=== PATIENT | female | born 1955 | race Caucasian/White ===

== ENCOUNTER → 2017-04-13 | Outpatient (CLI) | payer OTHER ==
--- NOTE | 2017-04-13 14:01 | CT ---
EXAMINATION TYPE: CT ChestAbdPelvis w con DATE OF EXAM: 04/13/2017 COMPARISON: NONE HISTORY: Staging for rectal CA CT DLP: 1826 mGycm CONTRAST: CT scan of the chest, abdomen and pelvis is performed with Oral Contrast and with IV Contrast, patien t injected with 100 mL of Omnipaque 300. CT Chest: LUNGS: The lungs are clear and free of infiltrate or atelectasis. No pulmonary nodule or mass is det ected. No pleural effusion or CT evidence of interstitial lung disease. MEDIASTINUM: The thyroid lobes. BE somewhat prominent. No distinct nodule identified. Thoracic aorta is of normal caliber. The heart is not enlarged. No evidence for mediastinal mass or adenopathy. HILAR STRUCTURES: No evidence for mass. No hilar adenopathy is appreciated. OTHER: No significant abnormality. CONTRAST CT ABDOMEN AND PELVIS FINDINGS: LIVER/GB: Large gallstone with peripheral calcification. No space occupying hepatic lesion. Biliary t ree is of normal caliber. PANCREAS: No inflammation. No distinct mass. SPLEEN: No splenic enlargement. No lesion seen. ADRENALS: No nodule. No thickening. KIDNEYS/BLADDER: No hydronephrosis. No nephrolithiasis. No disctinct renal mass. BOWEL: Normal appendix. Rectosigmoid soft tissue prominence suggested may reflect the site of rectal cancer. No evidence for obstruction. Colonic diverticulosis. GENITAL ORGANS: No gross abnormality. LYMPH NODES: No greater than 1cm abdominal or pelvic lymph nodes are appreciated. AORTA: No significant abnormality. OSSEOUS STRUCTURES: No significant abnormality is seen. OTHER: No significant additional abnormality is seen. IMPRESSION: 1. Rectosigmoid soft tissue prominence suggested may reflect the site of rectal cancer. 2. No evidence for metastatic disease. 3. Cholelithiasis. 4 thyroidomegaly
--- NOTE | 2017-04-13 15:31 | NM ---
EXAMINATION TYPE: NM bone scan whole body DATE OF EXAM: 04/13/2017 COMPARISON: CT chest abdomen and pelvis earlier today. HISTORY: Newly diagnosed rectal cancer. Delayed whole-body scanning was performed following the injection of 19.2 mCi Tc 99m MDP. Images acq uired 3 hours post injection. Images are obtained of the whole body as well as the abdomen and pelvis in multiple projections. FINDINGS: There is no scintigraphic evidence of suspicious radiotracer uptake throughout osseous structures to suggest metastatic disease or other abnormality. Bladder uptake is noted. Slight underlying scoliosis is redemonstrated. IMPRESSION: No scintigraphic evidence of metastatic disease to the bone.
== END | disposition home or self-care (01) ==
LOC: RADCTMAIN 11:32
PROVIDERS: ATTEND Internal Medicine Gastroenterology
DX: C20 Malignant neoplasm of rectum (principal); K80.20 Calculus of gallbladder without cholecystitis without obstruction; E01.0 Iodine-deficiency related diffuse (endemic) goiter
CPT/HCPCS: 71260; 74177; 78306; A9503; Q9967

== ENCOUNTER 2017-10-11 18:35 | Inpatient (IN) | payer OTHER ==
[2017-10-11] MEDS ORDERED: SODIUM CHLORIDE 0.9% 2,000 ML IV STA (19:32)
[2017-10-11] MEDS ORDERED: ONDANSETRON 4 MG/2 ML VIAL IVP STA (19:32)
[2017-10-11] MEDS ORDERED: PIPERACILLIN-TAZOBACTAM 3.375 GM in DEXTROSE/WATER 1 50ML.BAG IVPB STA (19:33)
[2017-10-11 19:49] LABS: HCT 41.4 % (34.0-46.0); HGB 14.5 gm/dL (11.4-16.0); MCH 29.8 pg (25.0-35.0); MCV 85.2 fL (80.0-100.0); Mean Platelet Volume 8.1; RBC 4.86 m/uL (3.80-5.40); RDW 14.4 % (11.5-15.5)
[2017-10-11 20:00] LABS: Albumin 4.3 g/dL (3.5-5.0); Calcium 9.6 mg/dL (8.4-10.2); Total Bilirubin 1.6 mg/dL (0.2-1.3); Total Protein 7.7 g/dL (6.3-8.2)
[2017-10-11 20:07] LABS: Appearance,Urine Cloudy (Clear); Bilirubin,Urine Negative (Negative); Blood,Urine Negative (Negative); Cellular Casts,Urine 4 /lpf (0); Color,Urine Yellow; Glucose,Urine (UA) Negative (Negative); Hyaline Casts,Urine 103 /lpf (0-2); Ketones,Urine Trace (Negative); Leukocyte Esterase,Urine Negative (Negative); Mucus,Urine Moderate /hpf; Nitrite,Urine Negative (Negative); PH, Urine 5.5 (5.0-8.0); Protein,Urine 1+ (Negative); RBC,Urine 1 /hpf (0-5); Specific Gravity,Urine 1.015 (1.001-1.035); Squamous Epithelial Cell,Urine 1 /hpf (0-4); Urobilinogen,Urine <2.0 mg/dL (<2.0); WBC,Urine 2 /hpf (0-5)
[2017-10-11 20:25] LABS: Band Neutrophils % 11 %; Metamyelocytes % 3 %; Myelocytes % 3 %; Neutrophils % (M) 34 %; Nucleated Red Blood Cells 4 /100 WBC (0-0); Plasma Cells % 1 %; Poikilocytosis (M) Present; Polychromasia Present; Total Cells Counted 200
[2017-10-11 20:28] LABS: Basophils # (M) 0.02 k/uL (0-0.2); Metamyelocytes # (M) 0.05 k/uL (0); Myelocytes # (M) 0.05 k/uL (0); Plasma Cells # (M) 0.02 k/uL (0)
[2017-10-11 20:29] LABS: Platelet Count 86 k/uL (150-450)
[2017-10-11 20:37] LABS: Lymphocytes # (M) 0.62 k/uL (1.0-4.8); Monocytes # (M) 0.18 k/uL (0-1.0); WBC 1.6 k/uL (3.8-10.6)
--- NOTE | 2017-10-11 20:39 | XR ---
EXAMINATION TYPE: XR chest 2V DATE OF EXAM: 10/11/2017 COMPARISON: NONE HISTORY: Chest pain TECHNIQUE: Frontal and lateral views of the chest are obtained. FINDINGS: There is no focal air space opacity, pleural effusion, or pneumothorax seen. The cardiac silhouette size is within normal limits. Right-sided Port-A-Cath is present, right jugular approach, distal tip of the catheter coursing towards the superior vena cava, patient is rotated. There are ov erlying cardiac leads. The osseous structures are intact. IMPRESSION: No acute cardiopulmonary process.
[2017-10-11] MEDS ORDERED: SODIUM CHLORIDE 0.9% 2,000 ML IV ONE ×2 (21:30→23:14)
[2017-10-11] MEDS ORDERED: LOPERAMIDE 2 MG CAP PO STA (21:31)
--- NOTE | 2017-10-11 21:37 | ED ---
Nausea/Vomiting/Diarrhea HPI - General Chief complaint: Nausea/Vomiting/Diarrhea Stated complaint: Dehydrated, weakness Time Seen by Provider: 10/11/17 19:25 Source: patient Mode of arrival: ambulatory Limitations: no limitations - History of Present Illness Initial comments: X-ray years old female with history of rectal cancer comes in with a fever chills tachycardia and generalized weakness nausea vomiting and diarrhea. She denies any headaches no neck stiffness no chest pain no shortness of breath she is complaining about sore throat she has been coughing no abdominal pain as such no symptoms of TIA or CVA. She is being treated by Dr. Craig - Related Data Home Medications Medication Instructions Recorded Confirmed Calcium Carbonate [Calcium] 600 mg PO DAILY 10/11/17 10/11/17 Famotidine [Pepcid AC] 10 mg PO DAILY PRN 10/11/17 10/11/17 Loperamide HCl [Imodium A-D] 2 mg PO DAILY PRN 10/11/17 10/11/17 Multivitamins, Thera [Multivitamin 1 tab PO DAILY 10/11/17 10/11/17 (formulary)] Ondansetron HCl [Zofran] 8 mg PO BID PRN 10/11/17 10/11/17 Pegfilgrastim [Neulasta] 6 mg SQ Q14D 10/11/17 10/11/17 Allergies Allergy/AdvReac Type Severity Reaction Status Date / Time No Known Allergies Allergy Verified 10/11/17 19:01 Review of Systems ROS Statement: Those systems with pertinent positive or pertinent negative responses have been documented in the HPI. ROS Other: All systems not noted in ROS Statement are negative. Past Medical History Past Medical History: Cancer Additional Past Medical History / Comment(s): rectal ca History of Any Multi-Drug Resistant Organisms: None Reported Past Surgical History: Bowel Resection, Section Additional Past Surgical History / Comment(s): Iliostomy Past Psychological History: No Psychological Hx Reported Smoking Status: Never smoker Past Alcohol Use History: None Reported Past Drug Use History: None Reported General Exam - General Exam Comments Initial Comments: General: The patient is awake and looks pale, tired Skin: Skin is warm and dry and no rashes or lesions are noted. Eye: Pupils are equal, round and reactive to light, extra-ocular movements are intact; there is normal conjunctiva bilaterally. Ears, nose, mouth and throat: Mucous membranes are very dry Neck: The neck is supple, there is no tenderness or JVD. Cardiovascular: There is a regular rate and rhythm. No murmur, rub or gallop is appreciated. She is tachycardic Respiratory: To auscultation bilateral, no wheezing no rhonchi no distress respiratory alvarez noticed Gastrointestinal: Soft, non-distended, non-tender abdomen without masses or organomegaly noted. There is no rebound or guarding present. Bowel sounds are unremarkable. Back: There is no tenderness to palpation in the midline. There is no obvious deformity. Musculoskeletal: Normal ROM, no tenderness, There is no pedal edema. There is no calf tenderness or swelling. No cords were appreciated. Neurological: CN II-XII intact, Cranial nerves III through XII are intact. There are no obvious motor or sensory deficits. Coordination appears grossly intact. Speech is normal. Psychiatric: Cooperative, appropriate mood & affect, normal judgment. Limitations: no limitations Course Vital Signs 10/11/17 10/11/17 10/11/17 18:37 19:54 21:00 Temperature 102.4 F H 101.1 F H 101.5 F H Pulse Rate 146 H 118 H 116 H Respiratory 18 18 16 Rate Blood Pressure 108/66 126/68 105/62 O2 Sat by Pulse 97 100 100 Oximetry Medical Decision Making - Lab Data Result diagrams: 10/11/17 19:35 10/11/17 19:35 Lab Results 10/11/17 10/11/17 10/11/17 Range/Units 19:30 19:35 19:35 WBC 1.6 L* (3.8-10.6) k/uL RBC 4.86 (3.80-5.40) m/uL Hgb 14.5 (11.4-16.0) gm/dL Hct 41.4 (34.0-46.0) % MCV 85.2 (80.0-100.0) fL MCH 29.8 (25.0-35.0) pg MCHC 35.0 (31.0-37.0) g/dL RDW 14.4 (11.5-15.5) % Plt Count 86 L (150-450) k/uL Neutrophils % (Manual) 34 % Band Neutrophils % 11 % Lymphocytes % (Manual) 39 % Monocytes % (Manual) 11 % Basophils % (Manual) 1 % Metamyelocytes % 3 % Myelocytes % 3 % Neutrophils # (Manual) 0.70 L (1.3-7.7) k/uL Lymphocytes # (Manual) 0.62 L (1.0-4.8) k/uL Monocytes # (Manual) 0.18 (0-1.0) k/uL Basophils # (Manual) 0.02 (0-0.2) k/uL Metamyelocytes # (Man) 0.05 H (0) k/uL Myelocytes # (Manual) 0.05 H (0) k/uL Plasma Cell # (Manual) 0.02 H (0) k/uL Nucleated RBCs 4 H (0-0) /100 WBC Manual Slide Review Performed Plasma Cells % 1 % Polychromasia Present Poikilocytosis (manual Present Sodium 133 L (137-145) mmol/L Potassium 4.0 (3.5-5.1) mmol/L Chloride 92 L (98-107) mmol/L Carbon Dioxide 21 L (22-30) mmol/L Anion Gap 20 mmol/L BUN 16 (7-17) mg/dL Creatinine 1.10 H (0.52-1.04) mg/dL Est GFR (CKD-EPI)AfAm 63 (>60 ml/min/1.73 sqM) Est GFR (CKD-EPI)NonAf 55 (>60 ml/min/1.73 sqM) Glucose 126 H (74-99) mg/dL Plasma Lactic Acid Keshawn (0.7-2.0) mmol/L Calcium 9.6 (8.4-10.2) mg/dL Total Bilirubin 1.6 H (0.2-1.3) mg/dL AST 55 H (14-36) U/L ALT 50 (9-52) U/L Alkaline Phosphatase 146 H (38-126) U/L Total Protein 7.7 (6.3-8.2) g/dL Albumin 4.3 (3.5-5.0) g/dL Urine Color Urine Appearance (Clear) Urine pH (5.0-8.0) Ur Specific [place] (1.001-1.035) Urine Protein (Negative) Urine Glucose (UA) (Negative) Urine Ketones (Negative) Urine Blood (Negative) Urine Nitrite (Negative) Urine Bilirubin (Negative) Urine Urobilinogen (<2.0) mg/dL Ur Leukocyte Esterase (Negative) Urine RBC (0-5) /hpf Urine WBC (0-5) /hpf Ur Squamous Epith Cells (0-4) /hpf Cellular Casts (0) /lpf Hyaline Casts (0-2) /lpf Urine Mucus (None) /hpf Influenza Type A RNA (Not Detectd) Influenza Type B (PCR) (Not Detectd) Group A Strep Rapid Negative (Negative) 10/11/17 10/11/17 10/11/17 Range/Units 19:35 19:35 19:51 WBC (3.8-10.6) k/uL RBC (3.80-5.40) m/uL Hgb (11.4-16.0) gm/dL Hct (34.0-46.0) % MCV (80.0-100.0) fL MCH (25.0-35.0) pg MCHC (31.0-37.0) g/dL RDW (11.5-15.5) % Plt Count (150-450) k/uL Neutrophils % (Manual) % Band Neutrophils % % Lymphocytes % (Manual) % Monocytes % (Manual) % Basophils % (Manual) % Metamyelocytes % % Myelocytes % % Neutrophils # (Manual) (1.3-7.7) k/uL Lymphocytes # (Manual) (1.0-4.8) k/uL Monocytes # (Manual) (0-1.0) k/uL Basophils # (Manual) (0-0.2) k/uL Metamyelocytes # (Man) (0) k/uL Myelocytes # (Manual) (0) k/uL Plasma Cell # (Manual) (0) k/uL Nucleated RBCs (0-0) /100 WBC Manual Slide Review Plasma Cells % % Polychromasia Poikilocytosis (manual Sodium (137-145) mmol/L Potassium (3.5-5.1) mmol/L Chloride (98-107) mmol/L Carbon Dioxide (22-30) mmol/L Anion Gap mmol/L BUN (7-17) mg/dL Creatinine (0.52-1.04) mg/dL Est GFR (CKD-EPI)AfAm (>60 ml/min/1.73 sqM) Est GFR (CKD-EPI)NonAf (>60 ml/min/1.73 sqM) Glucose (74-99) mg/dL Plasma Lactic Acid Keshawn 6.2 H* (0.7-2.0) mmol/L Calcium (8.4-10.2) mg/dL Total Bilirubin (0.2-1.3) mg/dL AST (14-36) U/L ALT (9-52) U/L Alkaline Phosphatase (38-126) U/L Total Protein (6.3-8.2) g/dL Albumin (3.5-5.0) g/dL Urine Color Yellow Urine Appearance Cloudy H (Clear) Urine pH 5.5 (5.0-8.0) Ur Specific [place] 1.015 (1.001-1.035) Urine Protein 1+ H (Negative) Urine Glucose (UA) Negative (Negative) Urine Ketones Trace H (Negative) Urine Blood Negative (Negative) Urine Nitrite Negative (Negative) Urine Bilirubin Negative (Negative) Urine Urobilinogen <2.0 (<2.0) mg/dL Ur Leukocyte Esterase Negative (Negative) Urine RBC 1 (0-5) /hpf Urine WBC 2 (0-5) /hpf Ur Squamous Epith Cells 1 (0-4) /hpf Cellular Casts 4 (0) /lpf Hyaline Casts 103 H (0-2) /lpf Urine Mucus Moderate H (None) /hpf Influenza Type A RNA Not Detected (Not Detectd) Influenza Type B (PCR) Not Detected (Not Detectd) Group A Strep Rapid (Negative) Critical Care Time Total Critical Care Time: 45 Critical Care Time: She is a 62 years old female diagnosed with a rectal cancer had down nausea vomiting and diarrhea came in very dehydrated and tachycardic heart rate was 145 dehydrated pale and tired labs were reviewed, white count is 1.6 platelets are 86 lactate is 6.2 urinalysis is negative flu a flu B and and strep is negative she was complaining about sore throat and she is immune compromised and she had a high fever on arrival, following the septic protocol now all the cultures were done and she was given a dose of his toes or cells seen Zosyn 2 L of fluid were given a CT chest x-ray were reviewed and didn't see any chest problems like heart failure she was given another 2 L she was admitted to [facility] floor since her tachycardia has improved and I will admit her under Dr. Fernando service Dr. rCaig be a consult Disposition Clinical Impression: Fever, Immunocompromised, Neutropenic Disposition: ADMITTED IP TO THIS HOSP Referrals: Katie Maurice MD [Primary Care Provider] - 1-2 days
[2017-10-11] MEDS ORDERED: NALOXONE 0.4 MG/ML 1 ML VIAL IV PRN (21:57)
[2017-10-11] MEDS ORDERED: ACETAMINOPHEN TAB 325 MG TAB PO PRN (21:57)
[2017-10-11] MEDS ORDERED: MORPHINE SULFATE 4 MG/ML SYRINGE IV PRN (21:57)
[2017-10-11] MEDS ORDERED: ONDANSETRON 4 MG/2 ML VIAL IVP PRN (21:57)
[2017-10-11 22:00] VITALS: RESP 18
[2017-10-12 00:47] VITALS: BMI 26.8
[2017-10-12] MEDS: SODIUM CHLORIDE 0.9% 1,000 ML IV SCH ×6 (02:05→19:55)
[2017-10-12] MEDS ORDERED: LOPERAMIDE 2 MG CAP PO PRN (07:08)
[2017-10-12] MEDS: MAG HYDROX/AL HYDROX/SIMETH 30 ML, diphenhydrAMINE ELIXIR 75 MG, LIDOCAINE VISCOUS 30 ML PO SCH ×12 (07:49→19:55)
[2017-10-12] MEDS: MULTIVITAMINS, THERA 1 EACH TAB PO SCH (07:50)
[2017-10-12] MEDS: CALCIUM CARBONATE 500 MG CHEWABLE PO SCH (07:50)
[2017-10-12] MEDS: LOPERAMIDE 2 MG CAP PO PRN ×3 (10:07→20:33)
[2017-10-12] MEDS ORDERED: MORPHINE ORAL SOLN 10 MG/5 ML CUP PO PRN (11:22)
[2017-10-12] MEDS: PIPERACILLIN-TAZOBACTAM 3.375 GM in DEXTROSE/WATER 1 50ML.BAG IVPB SCH ×2 (12:09→19:55)
[2017-10-12] MEDS ORDERED: DEXTROSE 5% IN WATER 250 ML with AMIODARONE 300 MG IV ONE (14:34)
[2017-10-12] MEDS: DILTIAZEM 50 MG in SODIUM CHLORIDE 0.9% 40 ML IV SCH ×3 (14:44→20:33)
--- NOTE | 2017-10-12 16:34 | P.CONS ---
History of Present Illness - Reason for Consult Consult date: 10/12/17 - History of Present Illness Mrs. Niecy Guajardo is a 62 yr old white female, in otherwise good health. The patient had a colonoscopy on 04/05/17, prompted by passage of small amounts of blood intermittently in the stool, over the last 2 months. Her prior colonoscopy was about 4 years ago. On examination, a nonobstructive mass was noted about 10 cm from the anal verge. Biopsies were done. Case was discussed with GI, and the patient referred here for further evaluation and recommendations. Pathology was positive for rectal adenocarcinoma. She had CT CAP and bone scan,which were negative for distant mets. EUS revealed a T3 N1 tumor. She started chemoRT with Xeloda on 04/30/17. She completed chemoRT on . She had segmental resection on 08/02/17 at [facility] with Dr Ortiz, with temporary ostomy placement. She had a residual 0.7 cm adenoca, clear margins and 0/13 nodes involved She had a PORT placed by Dr Montemayor, and started FOLFOX on 09/03/17. She is s/p 3 cycles, with the most recent given from 10/01- 10/03/17. Neulasta was added with cycle 3, and given on 10/04/17. The patient was seen in the office earlier this week, where she appeared to be doing well. White count was 2.8 with ANC greater than 1000. On 10/09/17, she states that she developed fairly acute onset of diarrhea in the afternoon. This became progressively more severe. Yesterday the patient developed nausea with some vomiting as well as fever with chills. She had increasing weakness. She therefore came into the emergency room where her temperature was found to be 101+. White blood count was actually lower than in the office, at 1.6 with ANC of 700. She was therefore admitted for further management, and consult placed. Review of Systems Constitutional: Reports fever, Reports poor appetite, Reports weakness Eyes: denies blurred vision, denies pain Ears: deny: decreased hearing, ear discharge, earache, tinnitus Ears, nose, mouth and throat: Denies headache, Denies sore throat Cardiovascular: Reports palpitations, Reports rapid heart beat Respiratory: Denies cough Gastrointestinal: Reports diarrhea, Reports nausea, Reports vomiting Genitourinary: Denies dysuria, Denies hematuria Menstruation: Reports postmenopausal Musculoskeletal: Reports muscle weakness Integumentary: Denies pruritus, Denies rash Neurological: Reports weakness, Denies numbness Psychiatric: Denies anxiety, Denies depression Endocrine: Reports fatigue, Denies weight change Hematologic/Lymphatic: Reports as per HPI Past Medical History Past Medical History: Cancer Additional Past Medical History / Comment(s): rectal ca History of Any Multi-Drug Resistant Organisms: None Reported Past Surgical History: Bowel Resection, Section Additional Past Surgical History / Comment(s): Ileostomy Past Anesthesia/Blood Transfusion Reactions: No Reported Reaction Past Psychological History: No Psychological Hx Reported Smoking Status: Never smoker Past Alcohol Use History: None Reported Past Drug Use History: None Reported - Past Family History Father Family Medical History: Diabetes Mellitus, Hypertension Medications and Allergies Home Medications Medication Instructions Recorded Confirmed Type Calcium Carbonate [Calcium] 600 mg PO DAILY 10/11/17 10/11/17 History Famotidine [Pepcid AC] 10 mg PO DAILY PRN 10/11/17 10/11/17 History Loperamide HCl [Imodium A-D] 2 mg PO DAILY PRN 10/11/17 10/11/17 History Multivitamins, Thera [Multivitamin 1 tab PO DAILY 10/11/17 10/11/17 History (formulary)] Ondansetron HCl [Zofran] 8 mg PO BID PRN 10/11/17 10/11/17 History Pegfilgrastim [Neulasta] 6 mg SQ Q14D 10/11/17 10/11/17 History Allergies Allergy/AdvReac Type Severity Reaction Status Date / Time No Known Allergies Allergy Verified 10/11/17 19:01 Physical Exam Vitals: Vital Signs Temp Pulse Pulse Resp BP BP Pulse Ox 10/12/17 14:27 93 L 10/12/17 11:41 108 H 18 10/12/17 11:34 98.6 F 108 H 18 108/62 95 10/12/17 08:00 99.2 F 100 18 103/57 95 10/12/17 04:00 97.8 F 102 H 18 95/55 95 10/12/17 00:06 100.2 F H 110 H 18 93/54 94 L 10/11/17 23:20 112 H 18 109/52 99 10/11/17 23:03 100.7 F H 124 H 18 106/61 97 10/11/17 21:58 99.1 F 125 H 18 105/65 97 10/11/17 21:00 101.5 F H 116 H 16 105/62 100 10/11/17 19:54 101.1 F H 118 H 18 126/68 100 10/11/17 18:37 102.4 F H 146 H 18 108/66 97 Intake and Output 10/12/17 10/12/17 10/12/17 06:59 14:59 22:59 Intake Total 4600 480 Balance 4600 480 Intake: Intake, IV Titration 4600 Amount Sodium Chloride 0.9% 1, 600 000 ml @ 100 mls/hr IV . Q10H TIAGO Rx#:[id number] Sodium Chloride 0.9% 2, 1000 000 ml @ 999 mls/hr IV . Q2H1M ONE Rx#:[id number] Sodium Chloride 0.9% 2, 2000 000 ml @ 999 mls/hr IV . Q2H1M ONE Rx#:[id number] Sodium Chloride 0.9% 2, 1000 000 ml @ 999 mls/hr IV . Q2H1M STA Rx#:[id number] Oral 480 Other: Voiding Method Toilet Toilet Weight 74.7 kg - Constitutional General appearance: no acute distress - EENT Eyes: EOMI, PERRLA ENT: hearing grossly normal, normal oropharynx - Neck Neck: no lymphadenopathy Thyroid: bilateral: normal size - Respiratory Respiratory: bilateral: CTA - Cardiovascular Tachycardia Rhythm: regular Heart sounds: normal: S1, S2 - Gastrointestinal Left lower quadrant ostomy, with watery yellowish green stool General gastrointestinal: normal bowel sounds, soft - Integumentary Integumentary: normal - Neurologic Neurologic: CNII-XII intact - Musculoskeletal Musculoskeletal: generalized weakness, strength equal bilaterally - Psychiatric Psychiatric: A&O x's 3, appropriate affect Results CBC & Chem 7: 10/11/17 19:35 10/11/17 19:35 Labs: Abnormal Lab Results - Last 24 Hours (Table) 10/11/17 10/11/17 10/11/17 Range/Units 19:35 19:35 19:35 WBC 1.6 L* (3.8-10.6) k/uL Plt Count 86 L (150-450) k/uL Neutrophils # (Manual) 0.70 L (1.3-7.7) k/uL Lymphocytes # (Manual) 0.62 L (1.0-4.8) k/uL Metamyelocytes # (Man) 0.05 H (0) k/uL Myelocytes # (Manual) 0.05 H (0) k/uL Plasma Cell # (Manual) 0.02 H (0) k/uL Nucleated RBCs 4 H (0-0) /100 WBC Sodium 133 L (137-145) mmol/L Chloride 92 L (98-107) mmol/L Carbon Dioxide 21 L (22-30) mmol/L Creatinine 1.10 H (0.52-1.04) mg/dL Glucose 126 H (74-99) mg/dL Plasma Lactic Acid Keshawn 6.2 H* (0.7-2.0) mmol/L Total Bilirubin 1.6 H (0.2-1.3) mg/dL AST 55 H (14-36) U/L Alkaline Phosphatase 146 H (38-126) U/L Urine Appearance (Clear) Urine Protein (Negative) Urine Ketones (Negative) Hyaline Casts (0-2) /lpf Urine Mucus (None) /hpf 10/11/17 10/11/17 10/12/17 Range/Units 19:51 22:39 02:22 WBC (3.8-10.6) k/uL Plt Count (150-450) k/uL Neutrophils # (Manual) (1.3-7.7) k/uL Lymphocytes # (Manual) (1.0-4.8) k/uL Metamyelocytes # (Man) (0) k/uL Myelocytes # (Manual) (0) k/uL Plasma Cell # (Manual) (0) k/uL Nucleated RBCs (0-0) /100 WBC Sodium (137-145) mmol/L Chloride (98-107) mmol/L Carbon Dioxide (22-30) mmol/L Creatinine (0.52-1.04) mg/dL Glucose (74-99) mg/dL Plasma Lactic Acid Keshawn 5.0 H* 3.9 H* (0.7-2.0) mmol/L Total Bilirubin (0.2-1.3) mg/dL AST (14-36) U/L Alkaline Phosphatase (38-126) U/L Urine Appearance Cloudy H (Clear) Urine Protein 1+ H (Negative) Urine Ketones Trace H (Negative) Hyaline Casts 103 H (0-2) /lpf Urine Mucus Moderate H (None) /hpf 10/12/17 10/12/17 Range/Units 06:57 10:43 WBC (3.8-10.6) k/uL Plt Count (150-450) k/uL Neutrophils # (Manual) (1.3-7.7) k/uL Lymphocytes # (Manual) (1.0-4.8) k/uL Metamyelocytes # (Man) (0) k/uL Myelocytes # (Manual) (0) k/uL Plasma Cell # (Manual) (0) k/uL Nucleated RBCs (0-0) /100 WBC Sodium (137-145) mmol/L Chloride (98-107) mmol/L Carbon Dioxide (22-30) mmol/L Creatinine (0.52-1.04) mg/dL Glucose (74-99) mg/dL Plasma Lactic Acid Keshawn 2.8 H* 3.0 H* (0.7-2.0) mmol/L Total Bilirubin (0.2-1.3) mg/dL AST (14-36) U/L Alkaline Phosphatase (38-126) U/L Urine Appearance (Clear) Urine Protein (Negative) Urine Ketones (Negative) Hyaline Casts (0-2) /lpf Urine Mucus (None) /hpf Microbiology - Last 24 Hours (Table) 10/11/17 19:51 Stool for WBCs - Final Stool 10/11/17 19:30 Group A Strep Throat Culture - Preliminary Throat 10/11/17 19:51 Stool Culture - Preliminary Stool 10/11/17 19:51 Urine Culture - Preliminary Urine,Voided Comments: EKG reviewed. Sinus tachycardia with mild nonspecific ST abnormality in lateral leads Chest x-ray: report reviewed Assessment and Plan (1) Neutropenic sepsis Narrative/Plan: The patient has presented with a septic picture, with severe dehydration, fever , and tachycardia. She has absolute neutropenia, with ANC less than 1000. She is being treated with aggressive hydration, as well as IV antibiotics. Cultures are negative so far. Continue broad-spectrum antibiotics. She has already received Neulasta on 10/04/17. Therefore there is no benefit to any additional growth factors currently. These can be added, if white count is still low after 10/14/17. The patient has significant diarrhea with some nausea and vomiting. Therefore a GI source would appear to be most likely clinically. C. diff and fecal leukocytes were negative. Abdominal exam is fairly benign. The patient has tolerated chemotherapy well so far. As noted, when seen earlier in the week she is doing quite well with white count of 2.8. Based on the clinical presentation, it is possible that she has an acute viral syndrome. Other infection is not ruled out and therefore antibiotics should be continued. Given her counts in the office, and the pattern of onset, chemotherapy effect is felt to be unlikely. Current Visit: Yes Status: Acute Code(s): A41.9 - SEPSIS, UNSPECIFIED ORGANISM; D70.9 - NEUTROPENIA, UNSPECIFIED SNOMED Code(s): 283643235 (2) Diarrhea Narrative/Plan: This is her major symptom. As noted above, given the pattern of presentation , chemotherapy effect is felt to be less likely. A viral syndrome is felt to be more of a possibility. Stool for C. diff was negative. Symptomatic treatment for the diarrhea, with cholestyramine, and Imodium when necessary Current Visit: Yes Status: Acute Code(s): R19.7 - DIARRHEA, UNSPECIFIED SNOMED Code(s): 17657636 (3) Dehydration Narrative/Plan: Due to diarrhea. The patient feels better with ongoing hydration with normal saline at 150 mL per hour. Creatinine was elevated from her baseline at 1.1 on presentation. With hydration lactic acid is diminishing. Continue to monitor chem panel and increase rate of hydration if needed Current Visit: Yes Status: Acute Code(s): E86.0 - DEHYDRATION SNOMED Code( s): 44364439 (4) Tachycardia Narrative/Plan: This is likely due to dehydration and fever. The patient has no prior cardiac history. This is likely to improve as diarrhea is controlled and hydration status improves. As noted above, fever pattern has improved Current Visit: Yes Status: Acute Code(s): R00.0 - TACHYCARDIA, UNSPECIFIED SNOMED Code(s): 6075311
[2017-10-12] MEDS ORDERED: CHOLESTYRAMINE (WITH SUGAR) 4 GM PACKET PO SCH (18:00)
[2017-10-12] MEDS: FAMOTIDINE 20 MG TAB PO PRN (20:33)
--- NOTE | 2017-10-12 21:52 | P.HPIM ---
History of Present Illness H&P Date: 10/12/17 Chief Complaint: Diarrhea Patient is a 62-year-old female with a known history of rectal cancer status post oral chemotherapy and radiation followed by surgery and is currently being treated with IV chemotherapy came to the hospital with complaints of diarrhea. Rest and also does have nausea and episode of vomiting. Patient has been increasing weak and came to ER. Patient was febrile on admission with T-max 102 and lactic acidosis. Chest x-ray and UA showed no acute signs of infection. Patient still having diarrhea. C. diff is negative. Patient was found to have neutropenic on admission and is currently being treated for neutropenic sepsis. Influenza negative and group B strep is negative Review of Systems Constitutional: Patient is have fever and chills at home . Patient has generalized weakness and malaise. Abdomen: Nausea and episode of vomiting. Patient does have continuous diarrhea. No abdominal pain Cardiovascular: Patient denies any chest pain or short of breath no palpitations. Respiratory: patient denied any cough is from production. No shortness of breath Neurologic: Patient denied any numbness or tingling headache. Musculoskeletal: Patient denies any complaints of joint swelling or deformity. Skin: Negative Psychiatric: Negative Endocrine: No heat or cold intolerance. No recent weight gain. Genitourinary: No dysuria or hematuria. All other 14 point ROS negative except the above Past Medical History Past Medical History: Cancer Additional Past Medical History / Comment(s): rectal ca History of Any Multi-Drug Resistant Organisms: None Reported Past Surgical History: Bowel Resection, Section Additional Past Surgical History / Comment(s): Ileostomy Past Anesthesia/Blood Transfusion Reactions: No Reported Reaction Past Psychological History: No Psychological Hx Reported Smoking Status: Never smoker Past Alcohol Use History: None Reported Past Drug Use History: None Reported - Past Family History Father Family Medical History: Diabetes Mellitus, Hypertension Medications and Allergies Home Medications Medication Instructions Recorded Confirmed Type Calcium Carbonate [Calcium] 600 mg PO DAILY 10/11/17 10/11/17 History Famotidine [Pepcid AC] 10 mg PO DAILY PRN 10/11/17 10/11/17 History Loperamide HCl [Imodium A-D] 2 mg PO DAILY PRN 10/11/17 10/11/17 History Multivitamins, Thera [Multivitamin 1 tab PO DAILY 10/11/17 10/11/17 History (formulary)] Ondansetron HCl [Zofran] 8 mg PO BID PRN 10/11/17 10/11/17 History Pegfilgrastim [Neulasta] 6 mg SQ Q14D 10/11/17 10/11/17 History Allergies Allergy/AdvReac Type Severity Reaction Status Date / Time No Known Allergies Allergy Verified 10/11/17 19:01 Physical Exam Vitals: Vital Signs Temp Pulse Pulse Resp BP BP Pulse Ox 10/12/17 08:00 99.2 F 100 18 103/57 95 10/12/17 04:00 97.8 F 102 H 18 95/55 95 10/12/17 00:06 100.2 F H 110 H 18 93/54 94 L 10/11/17 23:20 112 H 18 109/52 99 10/11/17 23:03 100.7 F H 124 H 18 106/61 97 10/11/17 21:58 99.1 F 125 H 18 105/65 97 10/11/17 21:00 101.5 F H 116 H 16 105/62 100 10/11/17 19:54 101.1 F H 118 H 18 126/68 100 10/11/17 18:37 102.4 F H 146 H 18 108/66 97 Intake and Output 10/11/17 10/12/17 10/12/17 22:59 06:59 14:59 Intake Total 4600 240 Balance 4600 240 Intake: Intake, IV Titration 4600 Amount Sodium Chloride 0.9% 1, 600 000 ml @ 100 mls/hr IV . Q10H [facility] Rx#:[id number] Sodium Chloride 0.9% 2, 1000 000 ml @ 999 mls/hr IV . Q2H1M [facility] Rx#:[id number] Sodium Chloride 0.9% 2, 2000 000 ml @ 999 mls/hr IV . Q2H1M [facility] Rx#:[id number] Sodium Chloride 0.9% 2, 1000 000 ml @ 999 mls/hr IV . Q2H1M [facility] Rx#:[id number] Oral 240 Other: Voiding Method Toilet Toilet Toilet Weight 71.668 kg 74.7 kg PHYSICAL EXAMINATION: Patient is lying in the bed comfortably, no acute distress, awake alert and oriented.. HEENT: Normocephalic. Neck is supple. Pupils reactive. Nostrils clear. Oral cavity is moist. Ears reveal no drainage. Neck reveals no JVD, carotid bruits, or thyromegaly. CHEST EXAMINATION: Trachea is central. Symmetrical expansion. Lung goode clear to auscultation and percussion. CARDIAC: Normal S1, S2 with no gallops. No murmurs ABDOMEN: Soft. Bowel sounds normal. No organomegaly. No abdominal bruits. Extremities: reveal no edema. No clubbing or cyanosis Neurologically awake, alert, oriented x3 with well-coordinated movements. No focal deficits noted Skin: No rash or skin lesions. Psychiatric: Cooperative. Nonsuicidal Musculoskeletal: No joint swelling or deformity. Normal range of motion. Results CBC & Chem 7: 10/11/17 19:35 10/11/17 19:35 Labs: Abnormal Lab Results - Last 24 Hours (Table) 10/11/17 10/11/17 10/11/17 Range/Units 19:35 19:35 19:35 WBC 1.6 L* (3.8-10.6) k/uL Plt Count 86 L (150-450) k/uL Neutrophils # (Manual) 0.70 L (1.3-7.7) k/uL Lymphocytes # (Manual) 0.62 L (1.0-4.8) k/uL Metamyelocytes # (Man) 0.05 H (0) k/uL Myelocytes # (Manual) 0.05 H (0) k/uL Plasma Cell # (Manual) 0.02 H (0) k/uL Nucleated RBCs 4 H (0-0) /100 WBC Sodium 133 L (137-145) mmol/L Chloride 92 L (98-107) mmol/L Carbon Dioxide 21 L (22-30) mmol/L Creatinine 1.10 H (0.52-1.04) mg/dL Glucose 126 H (74-99) mg/dL Plasma Lactic Acid Keshawn 6.2 H* (0.7-2.0) mmol/L Total Bilirubin 1.6 H (0.2-1.3) mg/dL AST 55 H (14-36) U/L Alkaline Phosphatase 146 H (38-126) U/L Urine Appearance (Clear) Urine Protein (Negative) Urine Ketones (Negative) Hyaline Casts (0-2) /lpf Urine Mucus (None) /hpf 10/11/17 10/11/17 10/12/17 Range/Units 19:51 22:39 02:22 WBC (3.8-10.6) k/uL Plt Count (150-450) k/uL Neutrophils # (Manual) (1.3-7.7) k/uL Lymphocytes # (Manual) (1.0-4.8) k/uL Metamyelocytes # (Man) (0) k/uL Myelocytes # (Manual) (0) k/uL Plasma Cell # (Manual) (0) k/uL Nucleated RBCs (0-0) /100 WBC Sodium (137-145) mmol/L Chloride (98-107) mmol/L Carbon Dioxide (22-30) mmol/L Creatinine (0.52-1.04) mg/dL Glucose (74-99) mg/dL Plasma Lactic Acid Keshawn 5.0 H* 3.9 H* (0.7-2.0) mmol/L Total Bilirubin (0.2-1.3) mg/dL AST (14-36) U/L Alkaline Phosphatase (38-126) U/L Urine Appearance Cloudy H (Clear) Urine Protein 1+ H (Negative) Urine Ketones Trace H (Negative) Hyaline Casts 103 H (0-2) /lpf Urine Mucus Moderate H (None) /hpf 10/12/17 10/12/17 Range/Units 06:57 10:43 WBC (3.8-10.6) k/uL Plt Count (150-450) k/uL Neutrophils # (Manual) (1.3-7.7) k/uL Lymphocytes # (Manual) (1.0-4.8) k/uL Metamyelocytes # (Man) (0) k/uL Myelocytes # (Manual) (0) k/uL Plasma Cell # (Manual) (0) k/uL Nucleated RBCs (0-0) /100 WBC Sodium (137-145) mmol/L Chloride (98-107) mmol/L Carbon Dioxide (22-30) mmol/L Creatinine (0.52-1.04) mg/dL Glucose (74-99) mg/dL Plasma Lactic Acid Keshawn 2.8 H* 3.0 H* (0.7-2.0) mmol/L Total Bilirubin (0.2-1.3) mg/dL AST (14-36) U/L Alkaline Phosphatase (38-126) U/L Urine Appearance (Clear) Urine Protein (Negative) Urine Ketones (Negative) Hyaline Casts (0-2) /lpf Urine Mucus (None) /hpf Microbiology - Last 24 Hours (Table) 10/11/17 19:51 Stool for WBCs - Final Stool 10/11/17 19:30 Group A Strep Throat Culture - Preliminary Throat 10/11/17 19:51 Stool Culture - Preliminary Stool 10/11/17 19:51 Urine Culture - Preliminary Urine,Voided Thrombosis Risk Factor Assmnt - Choose All That Apply Each Factor Represents 1 point: Age 41-60 years, Obesity (BMI >25), Sepsis (< 1month) Other congenital or acquired thrombophilia - If yes, enter type in comment: No Thrombosis Risk Factor Assessment Total Risk Factor Score: 3 Thrombosis Risk Factor Assessment Level: Moderate Risk Assessment and Plan Assessment: Acute neutropenic sepsis Nausea vomiting and diarrhea likely due to viral gastroenteritis. Bacterial infection cannot be ruled out. Follow-up culture reports. Neutropenia and thrombocytopenia Rectal cancer currently undergoing chemotherapy Severe lactic acidosis Plan: Patient will be continued on aggressive hydration. Follow-up lactic acid level. Continued on broad-spectrum antibiotics in the form of Zosyn and follow- up culture reports. C. diff toxin is negative. Patient will be started on cholestyramine. Oncology has been consulted. Further recommendations based on the clinical course. Time with Patient: Greater than 30
[2017-10-13] MEDS ORDERED: DILTIAZEM IV SCH (01:26)
[2017-10-13] MEDS ORDERED: SODIUM CHLORIDE 0.9% IV SCH (01:26)
[2017-10-13] MEDS: LOPERAMIDE 2 MG CAP PO PRN ×3 (01:53→19:21)
[2017-10-13] MEDS: SODIUM CHLORIDE 0.9% 1,000 ML IV SCH (02:18)
[2017-10-13] MEDS: PIPERACILLIN-TAZOBACTAM 3.375 GM in DEXTROSE/WATER 1 50ML.BAG IVPB SCH ×3 (02:18→19:21)
[2017-10-13] MEDS: DILTIAZEM ORAL 60 MG TAB PO SCH ×4 (02:35→19:21)
[2017-10-13 07:07] LABS: HCT 30.7 % (34.0-46.0); MCH 29.5 pg (25.0-35.0); MCV 86.8 fL (80.0-100.0); Mean Platelet Volume 8.8; RBC 3.54 m/uL (3.80-5.40); RDW 14.4 % (11.5-15.5)
[2017-10-13 07:10] LABS: HGB 10.4 gm/dL (11.4-16.0); Platelet Count 78 k/uL (150-450)
[2017-10-13 07:23] LABS: AST 24 U/L (14-36); Albumin 2.4 g/dL (3.5-5.0); Blood Urea Nitrogen 6 mg/dL (7-17); Calcium 7.9 mg/dL (8.4-10.2); Carbon Dioxide 27 mmol/L (22-30); Chloride 105 mmol/L (98-107); Total Bilirubin 0.6 mg/dL (0.2-1.3)
[2017-10-13 07:47] LABS: ALT 30 U/L (9-52); Alkaline Phosphatase 88 U/L (38-126); Anion Gap 8 mmol/L; Glucose 101 mg/dL (74-99); Sodium 140 mmol/L (137-145); Total Protein 5.1 g/dL (6.3-8.2)
[2017-10-13] MEDS: CALCIUM CARBONATE 500 MG CHEWABLE PO SCH (07:53)
[2017-10-13] MEDS: MAG HYDROX/AL HYDROX/SIMETH 30 ML, diphenhydrAMINE ELIXIR 75 MG, LIDOCAINE VISCOUS 30 ML PO SCH ×12 (07:53→19:20)
[2017-10-13] MEDS: MULTIVITAMINS, THERA 1 EACH TAB PO SCH (07:53)
[2017-10-13 07:55] LABS: Potassium 2.9 mmol/L (3.5-5.1)
[2017-10-13 08:08] LABS: Band Neutrophils % 6 %; Basophils # (M) 0.04 k/uL (0-0.2); Lymphocytes # (M) 0.36 k/uL (1.0-4.8); Metamyelocytes # (M) 0.12 k/uL (0); Metamyelocytes % 3 %; Monocytes # (M) 0.76 k/uL (0-1.0); Neutrophils % (M) 59 %; Nucleated Red Blood Cells 1 /100 WBC (0-0); Poikilocytosis (M) Present; Polychromasia Present; Total Cells Counted 200
[2017-10-13] MEDS ORDERED: Potassium Replacement Protocol 1 EACH MISC MISCELLANE PRN (08:12)
--- NOTE | 2017-10-13 08:25 | P.PN ---
Subjective Progress Note Date: 10/13/17 The patient overall feels better. She feels that her diarrhea may have slowed down slightly though it is still quite fluid. No history of any obvious bleeding or mouth sores. She has not had any recurrent fever or chills Objective - Vital Signs Vital signs: Vital Signs Temp 97.4 F L 10/13/17 07:53 Pulse 139 H 10/13/17 07:53 Resp 18 10/13/17 07:53 BP 98/54 10/13/17 07:53 Pulse Ox 91 L 10/13/17 07:53 Intake & Output 10/12/17 10/13/17 10/13/17 18:59 06:59 18:59 Intake Total 960 100 Balance 960 100 Weight 74.7 kg Intake: Intake, IV Titration 50 Amount Diltiazem 50 mg In Sodium 50 Chloride 0.9% 40 ml @ 10 MG/HR 10 mls/hr IV .Q5H [facility] Rx#:[id number] Oral 960 50 Other: Voiding Method Toilet Toilet Toilet # Voids 1 1 # Bowel Movements 1 - Constitutional General appearance: Present: no acute distress - EENT Eyes: Present: EOMI ENT: Present: hearing grossly normal, normal oropharynx - Respiratory Respiratory: bilateral: CTA - Cardiovascular Rhythm: regular Heart sounds: normal: S1, S2 - Gastrointestinal General gastrointestinal: Present: normal bowel sounds, soft Localized gastrointestinal: tender: LLQ - Neurologic Neurologic: Present: CNII-XII intact - Musculoskeletal Musculoskeletal: Present: strength equal bilaterally - Psychiatric Psychiatric: Present: A&O x's 3, appropriate affect - Labs CBC & Chem 7: 10/13/17 06:33 10/13/17 06:33 Labs: Abnormal Lab Results - Last 24 Hours (Table) 10/12/17 10/12/17 10/12/17 Range/Units 10:43 15:27 19:00 RBC (3.80-5.40) m/uL Hgb (11.4-16.0) gm/dL Hct (34.0-46.0) % Plt Count (150-450) k/uL Lymphocytes # (Manual) (1.0-4.8) k/uL Metamyelocytes # (Man) (0) k/uL Nucleated RBCs (0-0) /100 WBC Potassium (3.5-5.1) mmol/L BUN (7-17) mg/dL Glucose (74-99) mg/dL Plasma Lactic Acid Keshawn 3.0 H* 2.3 H* 2.3 H* (0.7-2.0) mmol/L Calcium (8.4-10.2) mg/dL Total Protein (6.3-8.2) g/dL Albumin (3.5-5.0) g/dL 10/13/17 10/13/17 Range/Units 06:33 06:33 RBC 3.54 L (3.80-5.40) m/uL Hgb 10.4 L D (11.4-16.0) gm/dL Hct 30.7 L (34.0-46.0) % Plt Count 78 L (150-450) k/uL Lymphocytes # (Manual) 0.36 L (1.0-4.8) k/uL Metamyelocytes # (Man) 0.12 H (0) k/uL Nucleated RBCs 1 H (0-0) /100 WBC Potassium 2.9 L* (3.5-5.1) mmol/L BUN 6 L (7-17) mg/dL Glucose 101 H (74-99) mg/dL Plasma Lactic Acid Keshawn (0.7-2.0) mmol/L Calcium 7.9 L (8.4-10.2) mg/dL Total Protein 5.1 L (6.3-8.2) g/dL Albumin 2.4 L (3.5-5.0) g/dL Microbiology - Last 24 Hours (Table) 10/11/17 19:51 Urine Culture - Final Urine,Voided 10/11/17 19:35 Blood Culture - Preliminary Blood No Growth after 24 hours Assessment and Plan (1) Neutropenic sepsis Narrative/Plan: Neutropenia has recovered with white count 4 today. A fever appears to have resolved. Cultures are negative so far. If patient remains afebrile, she can be changed over to by mouth antibiotics. As noted previously, there is suspicion that her presentation is related to a viral syndrome. Current Visit: Yes Status: Acute Code(s): A41.9 - SEPSIS, UNSPECIFIED ORGANISM; D70.9 - NEUTROPENIA, UNSPECIFIED SNOMED Code(s): 446882280 (2) Diarrhea Narrative/Plan: This is still fairly significant though it has slowed down slightly. She is already on maximal doses of Imodium. Dose of cholestyramine will be increased Current Visit: Yes Status: Acute Code(s): R19.7 - DIARRHEA, UNSPECIFIED SNOMED Code(s): 04119934 (3) Dehydration Current Visit: Yes Status: Acute Code(s): E86.0 - DEHYDRATION SNOMED Code( s): 51207276 (4) Tachycardia Narrative/Plan: The patient has had intermittent atrial fibrillation. Currently on exam rhythm is regular., Current Visit: Yes Status: Acute Code(s): R00.0 - TACHYCARDIA, UNSPECIFIED SNOMED Code(s): 3911670 Plan: Potassium will be supplemented.
[2017-10-13] MEDS: CHOLESTYRAMINE (WITH SUGAR) 4 GM PACKET PO SCH ×3 (08:30→17:22)
[2017-10-13] MEDS: POTASSIUM CHLORIDE ER 20 MEQ TAB.ER PO SCH ×8 (08:30→19:21)
[2017-10-13] MEDS: 0.9% NACL WITH KCL 20 MEQ/L 1,000 ML IV SCH ×3 (09:10→20:49)
[2017-10-13] MEDS ORDERED: ALPRAZolam 0.25 MG TAB PO PRN (09:20)
[2017-10-13] MEDS: FAMOTIDINE 20 MG TAB PO PRN (10:32)
--- NOTE | 2017-10-13 11:34 | CONS ---
CONSULTATION Patient is a 62-year-old female who has a history of rectal cancer and was started on chemotherapy and had surgery in July. Cardiology was consulted on account of atrial fibrillation with RVR. She came in with fever, chills, tachycardia, generalized weakness, nausea, vomiting and diarrhea. She was found to be in atrial fibrillation with RVR. She was treated with IV amiodarone 300 mg IV bolus and she is back in sinus rhythm. MEDICATIONS: Home medications include: 1. Calcium. 2. Pepcid. 3. Neulasta. 4. Zofran. 5. Multivitamins. 6. Imodium. ALLERGIES: NO KNOWN DRUG ALLERGIES. REVIEW OF SYSTEMS: Documented in the chart. PAST MEDICAL HISTORY: 1. Rectal cancer. 2. Bowel resection in July, status post chemotherapy. She has an ileostomy. SOCIAL HISTORY: She was never a smoker. PHYSICAL EXAMINATION: She was febrile at 102.4 degrees Fahrenheit, pulse rate 146 beats per minute. At this time she is in sinus rhythm. Heart rate is in the 80s and 90s. Blood pressure 102/54 mmHg. Breath sounds are reduced bilaterally. Heart sounds S1, S2 are regular. Abdomen is soft. IMPRESSION: 1. Paroxysmal atrial fibrillation. 2. Sinus tachycardia. 3. Rectal cancer, status post chemotherapy and surgery; has an ileostomy. From a cardiac standpoint, she is on diltiazem 60 mg 3 times a day. I will repeat her EKG again today, check TSH, and a 2D echocardiogram and Doppler study will be ordered. MMODL / IJN: [id number] /
[2017-10-13] MEDS: AMIODARONE 200 MG TAB PO SCH ×2 (11:43→19:21)
[2017-10-13 11:58] LABS: Potassium 2.8 mmol/L (3.5-5.1)
--- NOTE | 2017-10-13 23:08 | P.PN ---
Subjective Progress Note Date: 10/13/17 Principal diagnosis: Febrile neutropenia Patient is a 62-year-old female with a known history of rectal cancer status post oral chemotherapy and radiation followed by surgery and is currently being treated with IV chemotherapy came to the hospital with complaints of diarrhea. Rest and also does have nausea and episode of vomiting. Patient has been increasing weak and came to ER. Patient was febrile on admission with T-max 102 and lactic acidosis. Chest x-ray and UA showed no acute signs of infection. Patient still having diarrhea. C. diff is negative. Patient was found to have neutropenic on admission and is currently being treated for neutropenic sepsis. Influenza negative and group B strep is negative 10/13/2017 Patient is still having diarrhea and slightly improved. Questran dose increased. Otherwise hemodynamically stable. Lactic acidosis resolved. WBC count improved as well. No fever no chills. No complaints of chest pain or shortness of breath Blood culture urine culture and stool culture has been negative so far. No other acute overnight issues All other review of systems negative except the above Current medications reviewed. Objective - Vital Signs Vital signs: Vital Signs Temp 98.4 F 10/13/17 19:26 Pulse 98 10/13/17 19:26 Resp 18 10/13/17 19:26 BP 99/60 10/13/17 19:26 Pulse Ox 98 10/13/17 19:26 Intake & Output 10/13/17 10/13/17 10/14/17 06:59 18:59 07:59 Intake Total 100 1710 Balance 100 1710 Weight 74.7 kg 74.7 kg Intake: Intake, IV Titration 50 1350 Amount 0.9% NaCl with KCl 20 Meq 1350 /l 1,000 ml @ 150 mls/hr IV .Q6H40M [facility] Rx#: [id number] Diltiazem 50 mg In Sodium 50 Chloride 0.9% 40 ml @ 10 MG/HR 10 mls/hr IV .Q5H [facility] Rx#:[id number] Oral 50 360 Other: Voiding Method Toilet Toilet Toilet # Voids 1 2 2 # Bowel Movements 1 - Exam PHYSICAL EXAMINATION: Patient is lying in the bed comfortably, no acute distress, awake alert and oriented.. HEENT: Normocephalic. Neck is supple. Pupils reactive. Nostrils clear. Oral cavity is moist. Ears reveal no drainage. Neck reveals no JVD, carotid bruits, or thyromegaly. CHEST EXAMINATION: Trachea is central. Symmetrical expansion. Lung goode clear to auscultation and percussion. CARDIAC: Normal S1, S2 with no gallops. No murmurs ABDOMEN: Soft. Bowel sounds normal. No organomegaly. No abdominal bruits. Colostomy bag in place Extremities: reveal no edema. No clubbing or cyanosis Neurologically awake, alert, oriented x3 with well-coordinated movements. No focal deficits noted Skin: No rash or skin lesions. Psychiatric: Coperative. Nonsuicidal Musculoskeletal: No joint swelling or deformity. Normal range of motion. - Labs CBC & Chem 7: 10/13/17 06:33 10/13/17 21:54 Labs: Abnormal Lab Results - Last 24 Hours (Table) 10/13/17 10/13/17 10/13/17 Range/Units 06:33 06:33 11:15 RBC 3.54 L (3.80-5.40) m/uL Hgb 10.4 L D (11.4-16.0) gm/dL Hct 30.7 L (34.0-46.0) % Plt Count 78 L (150-450) k/uL Lymphocytes # (Manual) 0.36 L (1.0-4.8) k/uL Metamyelocytes # (Man) 0.12 H (0) k/uL Nucleated RBCs 1 H (0-0) /100 WBC Potassium 2.9 L* 2.8 L* (3.5-5.1) mmol/L BUN 6 L (7-17) mg/dL Glucose 101 H (74-99) mg/dL Calcium 7.9 L (8.4-10.2) mg/dL Total Protein 5.1 L (6.3-8.2) g/dL Albumin 2.4 L (3.5-5.0) g/dL Microbiology - Last 24 Hours (Table) 10/11/17 19:51 Urine Culture - Final Urine,Voided 10/11/17 19:35 Blood Culture - Preliminary Blood No Growth after 24 hours Assessment and Plan Assessment: Acute neutropenic sepsis. Cultures negative so far. Improving clinically Nausea vomiting and diarrhea likely due to viral gastroenteritis. Bacterial infection cannot be ruled out. Negative cultures.. Neutropenia and thrombocytopenia. Improving Rectal cancer currently undergoing chemotherapy Severe lactic acidosis. Resolved Plan: Patient will be continued on aggressive hydration. Lactic acidosis resolved. Continued on broad-spectrum antibiotics in the form of Zosyn and follow-up culture reports. C. diff toxin is negative. Patient was started on cholestyramine. Oncology is following. Further recommendations based on the clinical course. Time with Patient: Greater than 30
[2017-10-14] MEDS: PIPERACILLIN-TAZOBACTAM 3.375 GM in DEXTROSE/WATER 1 50ML.BAG IVPB SCH ×3 (00:53→19:32)
[2017-10-14] MEDS: 0.9% NACL WITH KCL 20 MEQ/L 1,000 ML IV SCH ×3 (00:53→17:21)
[2017-10-14] MEDS: LOPERAMIDE 2 MG CAP PO PRN ×2 (01:00→12:38)
[2017-10-14 06:36] LABS: HCT 29.5 % (34.0-46.0); HGB 9.9 gm/dL (11.4-16.0); MCH 29.4 pg (25.0-35.0); MCHC 33.7 g/dL (31.0-37.0); MCV 87.1 fL (80.0-100.0); Mean Platelet Volume 9.1; RBC 3.38 m/uL (3.80-5.40); RDW 14.9 % (11.5-15.5); WBC 5.1 k/uL (3.8-10.6)
[2017-10-14 06:47] LABS: Platelet Count 96 k/uL (150-450)
[2017-10-14 06:50] LABS: Anion Gap 6 mmol/L; Blood Urea Nitrogen 4 mg/dL (7-17); Carbon Dioxide 26 mmol/L (22-30); Chloride 108 mmol/L (98-107); Glucose 106 mg/dL (74-99); Potassium 3.5 mmol/L (3.5-5.1); Sodium 140 mmol/L (137-145)
[2017-10-14 08:12] LABS: Band Neutrophils % 5 %; Basophils # (M) 0.05 k/uL (0-0.2); Eosinophils # (M) 0.15 k/uL (0-0.7); Lymphocytes # (M) 0.51 k/uL (1.0-4.8); Metamyelocytes % 2 %; Monocytes # (M) 0.41 k/uL (0-1.0); Myelocytes # (M) 0.05 k/uL (0); Myelocytes % 1 %; Neutrophils % (M) 72 %; Nucleated Red Blood Cells 0 /100 WBC (0-0); Polychromasia Present; Total Cells Counted 200
[2017-10-14] MEDS: CHOLESTYRAMINE (WITH SUGAR) 4 GM PACKET PO SCH ×3 (09:05→17:21)
[2017-10-14] MEDS: CALCIUM CARBONATE 500 MG CHEWABLE PO SCH (09:05)
[2017-10-14] MEDS: MAG HYDROX/AL HYDROX/SIMETH 30 ML, diphenhydrAMINE ELIXIR 75 MG, LIDOCAINE VISCOUS 30 ML PO SCH ×12 (09:05→19:30)
[2017-10-14] MEDS: MULTIVITAMINS, THERA 1 EACH TAB PO SCH (09:05)
[2017-10-14] MEDS: AMIODARONE 200 MG TAB PO SCH ×2 (09:05→19:30)
[2017-10-14] MEDS: DILTIAZEM ORAL 60 MG TAB PO SCH ×3 (09:05→19:30)
[2017-10-14] MEDS: POTASSIUM CHLORIDE ER 20 MEQ TAB.ER PO SCH ×2 (09:08→10:18)
--- NOTE | 2017-10-14 11:05 | P.PN ---
Subjective Progress Note Date: 10/14/17 The patient notes some improvement in appetite, and decrease in volume of the diarrhea though stools are still quite watery Objective - Vital Signs Vital signs: Vital Signs Temp 96.9 F L 10/14/17 09:08 Pulse 96 10/14/17 09:08 Resp 18 10/14/17 09:08 BP 104/56 10/14/17 09:08 Pulse Ox 97 10/14/17 09:08 Intake & Output 10/13/17 10/14/17 10/14/17 17:59 06:59 18:59 Intake Total Balance Weight Intake: Intake, IV Titration Amount 0.9% NaCl with KCl 20 Meq /l 1,000 ml @ 150 mls/hr IV .Q6H40M [facility] Rx#: [id number] Oral Other: Voiding Method Toilet # Voids # Bowel Movements - Constitutional General appearance: Present: no acute distress - EENT Eyes: Present: EOMI ENT: Present: hearing grossly normal, normal oropharynx - Respiratory Respiratory: bilateral: CTA - Cardiovascular Rhythm: regular Heart sounds: normal: S1, S2 - Gastrointestinal General gastrointestinal: Present: normal bowel sounds, soft - Integumentary Integumentary: Present: normal - Neurologic Neurologic: Present: CNII-XII intact - Musculoskeletal Musculoskeletal: Present: strength equal bilaterally - Psychiatric Psychiatric: Present: A&O x's 3, appropriate affect - Labs CBC & Chem 7: 10/14/17 06:14 10/14/17 06:14 Labs: Abnormal Lab Results - Last 24 Hours (Table) 10/13/17 10/14/17 10/14/17 Range/Units 11:15 06:14 06:14 RBC 3.38 L (3.80-5.40) m/uL Hgb 9.9 L (11.4-16.0) gm/dL Hct 29.5 L (34.0-46.0) % Plt Count 96 L (150-450) k/uL Lymphocytes # (Manual) 0.51 L (1.0-4.8) k/uL Metamyelocytes # (Man) 0.10 H (0) k/uL Myelocytes # (Manual) 0.05 H (0) k/uL Potassium 2.8 L* (3.5-5.1) mmol/L Chloride 108 H (98-107) mmol/L BUN 4 L (7-17) mg/dL Creatinine 0.50 L (0.52-1.04) mg/dL Glucose 106 H (74-99) mg/dL Calcium 8.0 L (8.4-10.2) mg/dL Microbiology - Last 24 Hours (Table) 10/11/17 19:51 Stool Culture - Preliminary Stool 10/11/17 19:35 Blood Culture - Preliminary Blood No Growth after 48 hours Assessment and Plan (1) Neutropenic sepsis Narrative/Plan: Hemodynamics are normal. No fever noted. White count has normalized Current Visit: Yes Status: Acute Code(s): A41.9 - SEPSIS, UNSPECIFIED ORGANISM; D70.9 - NEUTROPENIA, UNSPECIFIED SNOMED Code(s): 212842481 (2) Diarrhea Narrative/Plan: This appears to be slowing down, though stools are still watery. Continue cholestyramine and the same dose along with Imodium when necessary. Patient is advancing her diet Current Visit: Yes Status: Acute Code(s): R19.7 - DIARRHEA, UNSPECIFIED SNOMED Code(s): 55519230 (3) Dehydration Current Visit: Yes Status: Acute Code(s): E86.0 - DEHYDRATION SNOMED Code( s): 10768531 (4) Tachycardia Current Visit: Yes Status: Acute Code(s): R00.0 - TACHYCARDIA, UNSPECIFIED SNOMED Code(s): 6087332 Plan: Rectal cancer-chemotherapy will be held this week. Noted previously, clinically , her presentation is felt to be less likely due to chemotherapy effect. Therefore the next cycle will be given at the same dose
[2017-10-15] MEDS: 0.9% NACL WITH KCL 20 MEQ/L 1,000 ML IV SCH ×3 (00:28→10:29)
[2017-10-15] MEDS: PIPERACILLIN-TAZOBACTAM 3.375 GM in DEXTROSE/WATER 1 50ML.BAG IVPB SCH ×2 (04:30→12:01)
[2017-10-15] MEDS: AMIODARONE 200 MG TAB PO SCH (09:33)
[2017-10-15] MEDS: DILTIAZEM ORAL 60 MG TAB PO SCH ×2 (09:33→15:24)
[2017-10-15] MEDS: MAG HYDROX/AL HYDROX/SIMETH 30 ML, diphenhydrAMINE ELIXIR 75 MG, LIDOCAINE VISCOUS 30 ML PO SCH ×6 (09:33→12:01)
[2017-10-15] MEDS: MULTIVITAMINS, THERA 1 EACH TAB PO SCH (09:33)
[2017-10-15] MEDS: CALCIUM CARBONATE 500 MG CHEWABLE PO SCH (09:33)
[2017-10-15] MEDS: CHOLESTYRAMINE (WITH SUGAR) 4 GM PACKET PO SCH ×2 (09:33→15:20)
[2017-10-15] MEDS ORDERED: Magnesium Replacement Protocol 1 EACH MISC MISCELLANE PRN (09:38)
[2017-10-15 11:06] LABS: HCT 31.5 % (34.0-46.0); HGB 10.5 gm/dL (11.4-16.0); MCH 29.1 pg (25.0-35.0); MCHC 33.2 g/dL (31.0-37.0); MCV 87.5 fL (80.0-100.0); Mean Platelet Volume 7.7; Platelet Count 118 k/uL (150-450); RBC 3.61 m/uL (3.80-5.40); RDW 15.2 % (11.5-15.5); WBC 6.5 k/uL (3.8-10.6)
--- NOTE | 2017-10-15 11:24 | P.PN ---
Subjective Progress Note Date: 10/14/17 Principal diagnosis: Febrile neutropenia Patient is a 62-year-old female with a known history of rectal cancer status post oral chemotherapy and radiation followed by surgery and is currently being treated with IV chemotherapy came to the hospital with complaints of diarrhea. Rest and also does have nausea and episode of vomiting. Patient has been increasing weak and came to ER. Patient was febrile on admission with T-max 102 and lactic acidosis. Chest x-ray and UA showed no acute signs of infection. Patient still having diarrhea. C. diff is negative. Patient was found to have neutropenic on admission and is currently being treated for neutropenic sepsis. Influenza negative and group B strep is negative 10/13/2017 Patient is still having diarrhea and slightly improved. Questran dose increased. Otherwise hemodynamically stable. Lactic acidosis resolved. WBC count improved as well. No fever no chills. No complaints of chest pain or shortness of breath Blood culture urine culture and stool culture has been negative so far. No other acute overnight issues 10/14/2017 Patient was found be in atrial fibrillation with a rapid regular rate. Rate is controlled with Cardizem and patient was also started on amiodarone for 3 weeks. Cardiology was consulted. Otherwise patient still having diarrhea. Potassium is being replaced. No fever no chills. Cultures have been negative. No other acute overnight issues. All other review of systems negative except the above Current medications reviewed. Objective - Vital Signs Vital signs: Vital Signs Temp 98.8 F 10/14/17 20:00 Pulse 139 H 10/14/17 20:00 Resp 18 10/14/17 20:00 BP 109/58 10/14/17 20:00 Pulse Ox 95 10/14/17 20:00 Intake & Output 10/14/17 10/14/17 10/15/17 06:59 18:59 06:59 Intake Total 1200 Balance 1200 Weight Intake: Intake, IV Titration 600 Amount 0.9% NaCl with KCl 20 Meq 600 /l 1,000 ml @ 150 mls/hr IV .Q6H40M [facility] Rx#: [id number] Oral 600 Other: Voiding Method Toilet Toilet # Voids 2 2 - Exam PHYSICAL EXAMINATION: Patient is lying in the bed comfortably, no acute distress, awake alert and oriented.. HEENT: Normocephalic. Neck is supple. Pupils reactive. Nostrils clear. Oral cavity is moist. Ears reveal no drainage. Neck reveals no JVD, carotid bruits, or thyromegaly. CHEST EXAMINATION: Trachea is central. Symmetrical expansion. Lung goode clear to auscultation and percussion. CARDIAC: Normal S1, S2 with no gallops. No murmurs ABDOMEN: Soft. Bowel sounds normal. No organomegaly. No abdominal bruits. Colostomy bag in place Extremities: reveal no edema. No clubbing or cyanosis Neurologically awake, alert, oriented x3 with well-coordinated movements. No focal deficits noted Skin: No rash or skin lesions. Psychiatric: Coperative. Nonsuicidal Musculoskeletal: No joint swelling or deformity. Normal range of motion. - Labs CBC & Chem 7: 10/15/17 10:17 10/14/17 14:16 Labs: Abnormal Lab Results - Last 24 Hours (Table) 10/14/17 10/14/17 Range/Units 06:14 06:14 RBC 3.38 L (3.80-5.40) m/uL Hgb 9.9 L (11.4-16.0) gm/dL Hct 29.5 L (34.0-46.0) % Plt Count 96 L (150-450) k/uL Lymphocytes # (Manual) 0.51 L (1.0-4.8) k/uL Metamyelocytes # (Man) 0.10 H (0) k/uL Myelocytes # (Manual) 0.05 H (0) k/uL Chloride 108 H (98-107) mmol/L BUN 4 L (7-17) mg/dL Creatinine 0.50 L (0.52-1.04) mg/dL Glucose 106 H (74-99) mg/dL Calcium 8.0 L (8.4-10.2) mg/dL Microbiology - Last 24 Hours (Table) 10/11/17 19:35 Blood Culture - Preliminary Blood No Growth after 72 hours 10/11/17 19:51 Stool Culture - Final Stool 10/11/17 19:30 Group A Strep Throat Culture - Final Throat Assessment and Plan Assessment: Acute neutropenic sepsis. Cultures negative so far. Improving clinically Nausea vomiting and diarrhea likely due to viral gastroenteritis. New onset atrial fibrillation paroxysmal. Converted to sinus now. On Cardizem and amiodarone Bacterial infection cannot be ruled out. Negative cultures.. Neutropenia and thrombocytopenia. Improving Rectal cancer currently undergoing chemotherapy Severe lactic acidosis. Resolved Plan: Patient will be continued on aggressive hydration. Lactic acidosis resolved. Continued on broad-spectrum antibiotics in the form of Zosyn and follow-up culture reports. C. diff toxin is negative. Patient was started on cholestyramine. Oncology is following. Further recommendations based on the clinical course. Time with Patient: Greater than 30
[2017-10-15 11:25] LABS: Anion Gap 9 mmol/L; Blood Urea Nitrogen 3 mg/dL (7-17); Calcium 8.3 mg/dL (8.4-10.2); Carbon Dioxide 26 mmol/L (22-30); Chloride 105 mmol/L (98-107); Glucose 130 mg/dL (74-99); Magnesium 1.8 mg/dL (1.6-2.3); Potassium 3.9 mmol/L (3.5-5.1); Sodium 140 mmol/L (137-145)
--- NOTE | 2017-10-15 12:29 | P.PN ---
Subjective Patient is doing well. She has not had any further episodes of atrial fibrillation. She is on low-dose amiodarone and I plan to continue this for a maximum of one month and discontinue it. She is also on Cardizem by mouth 60 mg 3 times a day. Heart rates are normal nice any chest discomfort no dizziness lightheadedness no palpitations no shortness of breath On examination her pulse rate is in the 60s afebrile 98.4F blood pressure 101/ 68 mmHg Breath sounds are clear no rhonchi no crackles Heart sounds S1 and S2 are normal no murmurs or gallops Abdomen soft nontender Impression Paroxysmal atrial fibrillation with RVR, symptomatic Rectal cancer status post surgery, on chemo She was febrile upon admission Now maintains sinus rhythm Suggest oral amiodarone for one month and then stop I will see her again after she completes her course of chemotherapy Outpatient workup thereafter Objective - Vital Signs Vital signs: Vital Signs Temp 98.4 F 10/15/17 04:00 Pulse 139 H 10/15/17 04:00 Resp 18 10/15/17 04:00 BP 101/68 10/15/17 04:00 Pulse Ox 95 10/15/17 04:00 Intake & Output 10/14/17 10/15/17 10/15/17 18:59 06:59 18:59 Intake Total 1200 240 240 Balance 1200 240 240 Weight 71.5 kg Intake: Intake, IV Titration 600 Amount 0.9% NaCl with KCl 20 Meq 600 /l 1,000 ml @ 150 mls/hr IV .Q6H40M [facility] Rx#: [id number] Oral 600 240 240 Other: Voiding Method Toilet Toilet # Voids 2 2 - Labs CBC & Chem 7: 10/15/17 10:17 10/15/17 10:17 Labs: Abnormal Lab Results - Last 24 Hours (Table) 10/15/17 10/15/17 Range/Units 10:17 10:17 RBC 3.61 L (3.80-5.40) m/uL Hgb 10.5 L (11.4-16.0) gm/dL Hct 31.5 L (34.0-46.0) % Plt Count 118 L (150-450) k/uL BUN 3 L (7-17) mg/dL Creatinine 0.50 L (0.52-1.04) mg/dL Glucose 130 H (74-99) mg/dL Calcium 8.3 L (8.4-10.2) mg/dL Microbiology - Last 24 Hours (Table) 10/11/17 19:51 Stool Culture - Final Stool 10/11/17 19:35 Blood Culture - Preliminary Blood No Growth after 72 hours 10/11/17 19:30 Group A Strep Throat Culture - Final Throat
[2017-10-15 12:34] LABS: Band Neutrophils % 6 %; Eosinophils # (M) 0.39 k/uL (0-0.7); Lymphocytes # (M) 0.33 k/uL (1.0-4.8); Metamyelocytes % 3 %; Monocytes # (M) 0.78 k/uL (0-1.0); Neutrophils % (M) 71 %; Nucleated Red Blood Cells 0 /100 WBC (0-0); Total Cells Counted 200
--- NOTE | 2017-10-15 13:13 | ECHOF ---
Referral Reason:afib MEASUREMENTS -------- HEIGHT: 167.6 cm WEIGHT: 74.4 kg BP: IVSd: 1.0 cm (0.6 - 1.1) LVIDd: 3.3 cm (3.9 - 5.3) LVPWd: 1.1 cm (0.6 - 1.1) IVSs: 1.7 cm LVIDs: 1.7 cm LVPWs: 2.0 cm Ao Diam: 3.4 cm (2.0 - 3.7) LA Diam: 3.6 cm (2.7 - 3.8) AV Cusp: 2.3 cm (1.5 - 2.6) EPSS: 0.9 cm MV E Tevin: 0.68 m/s MV DecT: 154 ms MV A Tevin: 0.77 m/s MV E/A Ratio: 0.89 MV EF SLOPE: 186.28 mm/s (70 - 150) MV EXCURSION: 18.05 mm (> 18.000) FINDINGS -------- Resting tachycardia (HR>100bpm). This was a technically good study. The left ventricular size is normal. Left ventricular wall thickness is normal. Overall left vent ricular systolic function is normal with, an EF between 60 - 65 %. The right ventricle is normal in size and function. The left atrium is normal in size. The right atrium is normal in size. The aortic valve is trileaflet, and appears structurally normal. No aortic stenosis or regurgitation. The mitral valve leaflets are mildly thickened. There is trace mitral regurgitation. Mild tricuspid regurgitation present. The right ventricular systolic pressure, as measured by Doppl er, is {RVSP}. Trace/mild (physiologic) pulmonic regurgitation. The aortic root size is normal. The pericardium is normal. CONCLUSIONS -------- 1. Resting tachycardia (HR>100bpm). 2. This was a technically good study. 3. The left ventricular size is normal. 4. Left ventricular wall thickness is normal. 5. Overall left ventricular systolic function is normal with, an EF between 60 - 65 %. 6. The right ventricle is normal in size and function. 7. The left atrium is normal in size. 8. The right atrium is normal in size. 9. The aortic valve is trileaflet, and appears structurally normal. No aortic stenosis or regurgitati on. 10. The mitral valve leaflets are mildly thickened. 11. There is trace mitral regurgitation. 12. Mild tricuspid regurgitation present. 13. The right ventricular systolic pressure, as measured by Doppler, is {RVSP}. 14. Trace/mild (physiologic) pulmonic regurgitation. 15. The aortic root size is normal. 16. The pericardium is normal. FREEZER ASSISTANT: Vanita Radford RDCS
--- NOTE | 2017-10-15 15:22 | P.PN ---
Subjective Progress Note Date: 10/15/17 Principal diagnosis: diarrhea, fever, chemo induced neutropenia Pt seen today in follow up, she is feeling really good and ready to go home. She has not had diarrhea today, she is tolerating oral intake, denies abd pain, she is independently ambulatory. She had an asymptomatic episode of arrhythmia and is now on cardizem and amiodarone. Objective - Vital Signs Vital signs: Vital Signs Temp 96.8 F L 10/15/17 12:00 Pulse 89 10/15/17 12:00 Resp 18 10/15/17 12:00 BP 111/55 10/15/17 12:00 Pulse Ox 96 10/15/17 12:00 Intake & Output 10/14/17 10/15/17 10/15/17 18:59 06:59 18:59 Intake Total 1200 240 480 Balance 1200 240 480 Weight 71.5 kg Intake: Intake, IV Titration 600 Amount 0.9% NaCl with KCl 20 Meq 600 /l 1,000 ml @ 150 mls/hr IV .Q6H40M [facility] Rx#: [id number] Oral 600 240 480 Other: Voiding Method Toilet Toilet Toilet # Voids 2 2 2 - Constitutional General appearance: Present: average body habitus, cooperative, no acute distress - Respiratory Respiratory: bilateral: CTA - Cardiovascular Rhythm: regular Heart sounds: normal: S1, S2 - Gastrointestinal General gastrointestinal: Present: normal bowel sounds, soft. Absent: absent bowel sounds, decreased bowel sounds, distended, hepatomegaly, hyperactive bowel sounds, organomegaly, rigid, scaphoid, splenomegaly, tenderness, umbilical hernia, ventral hernia - Neurologic Neurologic: Present: CNII-XII intact - Musculoskeletal Musculoskeletal: Present: strength equal bilaterally - Psychiatric Psychiatric: Present: A&O x's 3, appropriate affect, intact judgment & insight - Labs CBC & Chem 7: 10/15/17 10:17 10/15/17 10:17 Labs: Abnormal Lab Results - Last 24 Hours (Table) 10/15/17 10/15/17 Range/Units 10:17 10:17 RBC 3.61 L (3.80-5.40) m/uL Hgb 10.5 L (11.4-16.0) gm/dL Hct 31.5 L (34.0-46.0) % Plt Count 118 L (150-450) k/uL Lymphocytes # (Manual) 0.33 L (1.0-4.8) k/uL Metamyelocytes # (Man) 0.20 H (0) k/uL BUN 3 L (7-17) mg/dL Creatinine 0.50 L (0.52-1.04) mg/dL Glucose 130 H (74-99) mg/dL Calcium 8.3 L (8.4-10.2) mg/dL Microbiology - Last 24 Hours (Table) 10/11/17 19:51 Stool Culture - Final Stool 10/11/17 19:35 Blood Culture - Preliminary Blood No Growth after 72 hours 10/11/17 19:30 Group A Strep Throat Culture - Final Throat Assessment and Plan (1) Diarrhea Narrative/Plan: Symptom resolved, sequelae resolved. Current Visit: Yes Status: Acute Priority: High Code(s): R19.7 - DIARRHEA , UNSPECIFIED SNOMED Code(s): 96156746 (2) Rectal adenocarcinoma Narrative/Plan: Treatment delay x 1 week. Pt aware, appt in chart Current Visit: Yes Status: Acute Priority: Medium Code(s): C20 - MALIGNANT NEOPLASM OF RECTUM SNOMED Code(s): 517128281 (3) Fever Current Visit: Yes Status: Resolved Code(s): R50.9 - FEVER, UNSPECIFIED SNOMED Code(s): 373030614 (4) Neutropenic Current Visit: Yes Status: Resolved Code(s): D70.9 - NEUTROPENIA, UNSPECIFIED SNOMED Code(s): 682488426
[2017-10-15 16:17] VITALS: BP 101/64; PULSE 99; TEMP 97.6
--- NOTE | 2017-10-15 23:17 | P.DS ---
Providers Date of admission: 10/11/17 21:57 Expected date of discharge: 10/15/17 Attending physician: Dixie Fernando Consults: 10/11/17 21:57 Consult Physician Stat Consulting Provider: Steve Craig Consult Reason/Comments: Rectal cancer Do you want consulting provider notified?: Yes 10/12/17 14:21 Consult Physician Stat Consulting Provider: Deric Ramirez Consult Reason/Comments: new a fib with rvr Do you want consulting provider notified?: Yes Primary care physician: Katie Maurice Hospital Course: Discharge diagnosis Acute neutropenic sepsis. Cultures negative so far. Improved clinically Nausea vomiting and diarrhea likely due to viral gastroenteritis. No diarrhea no tolerating oral diet New onset atrial fibrillation paroxysmal. Converted to sinus now. On Cardizem and amiodarone Bacterial infection cannot be ruled out. Negative cultures.. DC'd antibiotics Neutropenia and thrombocytopenia. Improving Rectal cancer currently undergoing chemotherapy Severe lactic acidosis. Resolved Hospital course Patient is a 62-year-old female with a known history of rectal cancer status post oral chemotherapy and radiation followed by surgery and is currently being treated with IV chemotherapy came to the hospital with complaints of diarrhea. Rest and also does have nausea and episode of vomiting. Patient has been increasing weak and came to ER. Patient was febrile on admission with T-max 102 and lactic acidosis. Chest x-ray and UA showed no acute signs of infection. Patient still having diarrhea. C. diff is negative. Patient was found to have neutropenic on admission and is currently being treated for neutropenic sepsis. Influenza negative and group B strep is negative 10/13/2017 Patient is still having diarrhea and slightly improved. Questran dose increased. Otherwise hemodynamically stable. Lactic acidosis resolved. WBC count improved as well. No fever no chills. No complaints of chest pain or shortness of breath Blood culture urine culture and stool culture has been negative so far. No other acute overnight issues 10/14/2017 Patient was found be in atrial fibrillation with a rapid regular rate. Rate is controlled with Cardizem and patient was also started on amiodarone for 3 weeks. Cardiology was consulted. Otherwise patient still having diarrhea. Potassium is being replaced. No fever no chills. Cultures have been negative. No other acute overnight issues. 10/15/2017 Diarrhea resolved today. Patient will be discharged home and follow with cardiology and oncology as an outpatient. \ Patient was continued on aggressive hydration. Lactic acidosis resolved. Continued on broad-spectrum antibiotics in the form of Zosyn and follow-up culture reports. C. diff toxin is negative. Antibiotics discontinued with negative cultures. Patient was started on cholestyramine. Diarrhea resolved now. Otherwise patient is stable to be discharged home. Discharge physical examination was done and vitals reviewed Patient Condition at Discharge: Stable Plan - Discharge Summary Discharge Rx Participant: No New Discharge Prescriptions: New Amiodarone [Cordarone] 200 mg PO BID #60 tab Cholestyramine (with Sugar) [Questran Packet] 4 gm PO TID BETWEEN MEALS #30 packet Diltiazem Oral [Cardizem*] 60 mg PO TID #90 tab Continue Pegfilgrastim [Neulasta] 6 mg SQ Q14D Multivitamins, Thera [Multivitamin (formulary)] 1 tab PO DAILY Ondansetron HCl [Zofran] 8 mg PO BID PRN PRN Reason: Nausea Loperamide HCl [Imodium A-D] 2 mg PO DAILY PRN PRN Reason: Constipation Famotidine [Pepcid AC] 10 mg PO DAILY PRN PRN Reason: Heartburn Calcium Carbonate [Calcium] 600 mg PO DAILY Discharge Medication List Calcium Carbonate [Calcium] 600 mg PO DAILY 10/11/17 [History] Famotidine [Pepcid AC] 10 mg PO DAILY PRN 10/11/17 [History] Loperamide HCl [Imodium A-D] 2 mg PO DAILY PRN 10/11/17 [History] Multivitamins, Thera [Multivitamin (formulary)] 1 tab PO DAILY 10/11/17 [History ] Ondansetron HCl [Zofran] 8 mg PO BID PRN 10/11/17 [History] Pegfilgrastim [Neulasta] 6 mg SQ Q14D 10/11/17 [History] Amiodarone [Cordarone] 200 mg PO BID #60 tab 10/15/17 [Rx] Cholestyramine (with Sugar) [Questran Packet] 4 gm PO TID BETWEEN MEALS #30 packet 10/15/17 [Rx] Diltiazem Oral [Cardizem*] 60 mg PO TID #90 tab 10/15/17 [Rx] Follow up Appointment(s)/Referral(s): Deric Ramirez MD [STAFF PHYSICIAN] - 6 Weeks (January follow up appointment.) Steve Craig MD [STAFF PHYSICIAN] - 10/22/17 9:00 am (this is chemo appt, it is at the [place] location) Katie Maurice MD [Primary Care Provider] - 1-2 days Patient Instructions/Handouts: A-fib (Atrial Fibrillation) (DC) Discharge Disposition: HOME SELF-CARE
[2017-10-18] MEDS ORDERED: PEGFILGRASTIM 6 MG/0.6 ML SYRINGE SQ SCH (09:00)
== END 2017-10-15 16:35 | disposition home or self-care (01) | DRG 872 ==
LOC: EC 18:35 → 6SEL 21:57
PROVIDERS: ADMIT Hospitalist; ATTEND Hospitalist
DX: A41.9 Sepsis, unspecified organism (principal); E87.2 Acidosis; D69.6 Thrombocytopenia, unspecified; D70.1 Agranulocytosis secondary to cancer chemotherapy; D70.3 Neutropenia due to infection; I48.0 Paroxysmal atrial fibrillation; C20 Malignant neoplasm of rectum; E86.0 Dehydration; A08.4 Viral intestinal infection, unspecified; R50.81 Fever presenting with conditions classified elsewhere; Z79.899 Other long term (current) drug therapy; T45.1X5A Adverse effect of antineoplastic and immunosuppressive drugs, initial encounter; Z93.2 Ileostomy status; Z90.49 Acquired absence of other specified parts of digestive tract; Z92.3 Personal history of irradiation
CPT/HCPCS: 36415; 71046; 80048; 80053; 81001; 83605; 83735; 84132; 84443; 85025; 87040; 87045; 87046; 87081; 87086; 87324; 87430; 87502; 89055; 93005; 93306; 94760; 96365; 96366; 96375; 99291

== ENCOUNTER → 2017-11-09 | Outpatient (CLI) | payer OTHER ==
[~2017-11-09] MED LIST: PEGFILGRASTIM 6 MG/0.6 ML SYRINGE SQ ONE
[2017-11-09 14:37] VITALS: RESP 16
[2017-11-12 08:15] VITALS: BP 132/72; PULSE 68; TEMP 98.2
== END | disposition home or self-care (01) ==
LOC: PROCWHC3 12:25
PROVIDERS: ATTEND Internal Medicine Hematology & Oncology
DX: D70.2 Other drug-induced agranulocytosis (principal)
CPT/HCPCS: 96372; J2505

== ENCOUNTER → 2017-12-07 | Outpatient (CLI) | payer OTHER ==
--- NOTE | 2017-12-07 13:54 | CT ---
EXAMINATION TYPE: CT abdomen pelvis w con DATE OF EXAM: 12/07/2017 HISTORY: Abnormal liver function. History of rectal cancer. CT DLP: 1364mGycm Automated Exposure Control for Dose Reduction was Utilized. CONTRAST: CT scan of the abdomen and pelvis is performed with IV Contrast, patient injected with 100 ml mL of I sovue 300. COMPARISON: CT chest abdomen and pelvis April 13, 2017 FINDINGS: LUNG BASES: No significant abnormality is appreciated. LIVER/GB: Large rim calcified 2.5 cm gallstone is redemonstrated in a contracted gallbladder. Liver i s diffusely low dense relative to spleen. Liver is normal in size. No worrisome masses are identified . No suspicious intrahepatic or extrahepatic ductal dilatation is seen. PANCREAS: Pancreas is normal in size. There is new mild ill-defined fluid and fat stranding surroundi ng the head and uncinate process. I am suspicious for acute pancreatitis. Clinical and lab correlatio n advised. No necrosis or well-formed fluid collection seen. No ductal dilatation is present. SPLEEN: Spleen size now measures upper limits of normal 12.9 cm on long axis axial image 24. ADRENALS: No significant abnormality is seen. KIDNEYS: There is new 5 mm calculus upper pole level right kidney coronal image 59. There is symmetri c for medullary uptake and excretion from both kidneys without evidence of concerning solid or cystic renal mass or hydronephrosis bilaterally. Scattered pelvic phleboliths are seen. BOWEL: The oral contrast reaches ostomy in the right lower quadrant. There has been interval placemen t of right lower quadrant ileostomy. Scattered diverticula are seen throughout the colon most promine nt in the sigmoid colon. There are new sutures at level of rectum. Nonopacified terminal ileum is pre sent. UTERUS/ADNEXA: No gross abnormality seen. LYMPH NODES: No greater than 1cm abdominal or pelvic lymph nodes are appreciated. OSSEOUS STRUCTURES: There are bilateral pars defects with grade 1 anterolisthesis of L5 on S1 redemon strated. Moderate to advanced disc space narrowing at this level is again seen. OTHER: No significant additional abnormality is seen. IMPRESSION: Interval rectal surgery and placement of right lower quadrant ileostomy. No new suspiciou s intrahepatic mass or ductal dilatation. Stable large gallstone. Suspect new mild acute pancreatitis . Clinical and lab correlation advised. A Yellow level critical message alert has been initiated for Steve Craig MD via the [employer] System on 12/07/2017 1:51 PM. This message alert has been sent to Steve Craig MD via the preferences provided by the clinician for the receipt of Radiology Critical Findings. Message ID [id number].
== END | disposition home or self-care (01) ==
LOC: RADCTMAIN 11:48
PROVIDERS: ATTEND Internal Medicine Hematology & Oncology
DX: C20 Malignant neoplasm of rectum (principal); K80.20 Calculus of gallbladder without cholecystitis without obstruction; Z93.2 Ileostomy status
CPT/HCPCS: 74177; Q9967

== ENCOUNTER 2018-01-27 05:57 | Emergency (ER) | payer OTHER ==
[2018-01-27 06:57] LABS: Appearance,Urine Cloudy (Clear); Bilirubin,Urine Negative (Negative); Blood,Urine Moderate (Negative); Calcium Oxalate Crystals,Urine Occasional /hpf; Color,Urine Yellow; Glucose,Urine (UA) Trace (Negative); Hyaline Casts,Urine 12 /lpf (0-2); Ketones,Urine Trace (Negative); Leukocyte Esterase,Urine Trace (Negative); Mucus,Urine Many /hpf; Nitrite,Urine Negative (Negative); Protein,Urine 2+ (Negative); RBC,Urine 126 /hpf (0-5); Specific Gravity,Urine 1.031 (1.001-1.035); WBC,Urine 14 /hpf (0-5)
[2018-01-27] MEDS ORDERED: MORPHINE SULFATE 2 MG/ML SYRINGE IVP STA (07:04)
[2018-01-27 07:19] LABS: Anisocytosis Slight; HCT 32.8 % (34.0-46.0); HGB 10.7 gm/dL (11.4-16.0); MCH 33.7 pg (25.0-35.0); MCHC 32.6 g/dL (31.0-37.0); MCV 103.5 fL (80.0-100.0); Macrocytosis Moderate; Mean Platelet Volume 9.4; Platelet Count 62 k/uL (150-450); RBC 3.17 m/uL (3.80-5.40); WBC 4.1 k/uL (3.8-10.6)
[2018-01-27 07:21] LABS: ALT 38 U/L (9-52); AST 66 U/L (14-36); Albumin 3.6 g/dL (3.5-5.0); Alkaline Phosphatase 181 U/L (38-126); Anion Gap 12 mmol/L; Blood Urea Nitrogen 10 mg/dL (7-17); Calcium 9.2 mg/dL (8.4-10.2); Carbon Dioxide 20 mmol/L (22-30); Chloride 107 mmol/L (98-107); Glucose 125 mg/dL (74-99); Potassium 4.3 mmol/L (3.5-5.1); Sodium 139 mmol/L (137-145); Total Bilirubin 0.8 mg/dL (0.2-1.3); Total Protein 6.5 g/dL (6.3-8.2)
[2018-01-27] MEDS ORDERED: KETOROLAC 30 MG/ML 1 ML VIAL IVP STA (07:52)
--- NOTE | 2018-01-27 07:56 | ED ---
General Adult HPI - General Chief complaint: Urogenital Stated complaint: Urinary problems Time Seen by Provider: 01/27/18 07:44 Source: patient, RN notes reviewed Mode of arrival: ambulatory Limitations: no limitations - History of Present Illness Initial comments: Patient is a pleasant 62-year-old female presenting to the emergency department with urinary complaints. Patient does have dysuria and urinary frequency. Patient has urgency and concerns for not fully emptying her bladder. Symptoms started a couple of days ago, seemed to get better and then worsened last night. Patient now has discomfort on her right flank that is moderate to severe. Morphine has helped a little bit. No history of similar symptoms previously. Patient does have a recent history of rectal cancer and recently finished treatment including surgical and radiation. - Related Data Home Medications Medication Instructions Recorded Confirmed Calcium Carbonate [Calcium] 600 mg PO DAILY 10/11/17 11/09/17 Famotidine [Pepcid AC] 10 mg PO DAILY PRN 10/11/17 11/09/17 Loperamide HCl [Imodium A-D] 2 mg PO DAILY PRN 10/11/17 11/09/17 Multivitamins, Thera [Multivitamin 1 tab PO DAILY 10/11/17 11/09/17 (formulary)] Ondansetron HCl [Zofran] 8 mg PO BID PRN 10/11/17 11/09/17 Pegfilgrastim [Neulasta] 6 mg SQ Q14D 10/11/17 11/09/17 Previous Rx's Medication Instructions Recorded Amiodarone [Cordarone] 200 mg PO BID #60 tab 10/15/17 Cholestyramine (with Sugar) 4 gm PO TID BETWEEN MEALS #30 10/15/17 [Questran Packet] packet Diltiazem Oral [Cardizem*] 60 mg PO TID #90 tab 10/15/17 Cephalexin [Keflex] 500 mg PO TID #21 cap 01/27/18 Ketorolac [Toradol] 10 mg PO Q6HR PRN #12 tab 01/27/18 Tamsulosin [Flomax] 0.4 mg PO DAILY #14 cap 01/27/18 Allergies Allergy/AdvReac Type Severity Reaction Status Date / Time No Known Allergies Allergy Verified 01/27/18 06:02 Review of Systems ROS Statement: Those systems with pertinent positive or pertinent negative responses have been documented in the HPI. ROS Other: All systems not noted in ROS Statement are negative. Constitutional: Denies: fever Eyes: Denies: eye pain ENT: Denies: ear pain Respiratory: Denies: dyspnea Cardiovascular: Denies: chest pain Endocrine: Denies: fatigue Gastrointestinal: Reports: abdominal pain (Right flank/back). Denies: vomiting Genitourinary: Reports: urgency, dysuria, frequency Musculoskeletal: Reports: back pain (Right lower) Skin: Denies: rash Neurological: Denies: weakness Past Medical History Past Medical History: Cancer Additional Past Medical History / Comment(s): rectal ca History of Any Multi-Drug Resistant Organisms: None Reported Past Surgical History: Bowel Resection, Section Additional Past Surgical History / Comment(s): Ileostomy Past Anesthesia/Blood Transfusion Reactions: No Reported Reaction Past Psychological History: No Psychological Hx Reported Smoking Status: Never smoker - Past Family History Father Family Medical History: Diabetes Mellitus, Hypertension General Exam Limitations: no limitations General appearance: alert, in no apparent distress Head exam: Present: atraumatic Eye exam: Present: normal appearance, PERRL ENT exam: Present: normal oropharynx Neck exam: Present: normal inspection Respiratory exam: Present: normal lung sounds bilaterally Cardiovascular Exam: Present: regular rate, normal rhythm Expanded Peripheral pulses: 2+: Dorsalis Pedis (R), Dorsalis Pedis (L) GI/Abdominal exam: Present: soft, normal bowel sounds. Absent: distended, tenderness, guarding, rebound, rigid, pulsatile mass Extremities exam: Present: normal inspection Back exam: Present: normal inspection (No tenderness, patient states her discomfort is just below the right CVA.) Neurological exam: Present: alert Psychiatric exam: Present: normal affect, normal mood Skin exam: Present: normal color. Absent: rash Course Vital Signs 01/27/18 01/27/18 06:00 08:49 Temperature 98.4 F 97.5 F L Pulse Rate 97 95 Respiratory 16 18 Rate Blood Pressure 138/81 122/75 O2 Sat by Pulse 99 98 Oximetry Medical Decision Making - Medical Decision Making Patient reevaluated and significantly improved following Toradol. Patient and family updated on results and need for follow-up. Also advised to return for fever, uncontrolled pain or vomiting, worsening symptoms. - Lab Data Result diagrams: 01/27/18 07:00 01/27/18 07:00 Lab Results 01/27/18 01/27/18 01/27/18 Range/Units 06:39 07:00 07:00 WBC 4.1 (3.8-10.6) k/uL RBC 3.17 L (3.80-5.40) m/uL Hgb 10.7 L (11.4-16.0) gm/dL Hct 32.8 L (34.0-46.0) % MCV 103.5 H (80.0-100.0) fL MCH 33.7 (25.0-35.0) pg MCHC 32.6 (31.0-37.0) g/dL RDW 18.0 H (11.5-15.5) % Plt Count 62 L (150-450) k/uL Neutrophils % (Manual) 63 % Band Neutrophils % 6 % Lymphocytes % (Manual) 20 % Monocytes % (Manual) 7 % Eosinophils % (Manual) 2 % Metamyelocytes % 3 % Neutrophils # (Manual) 2.80 (1.3-7.7) k/uL Lymphocytes # (Manual) 0.82 L (1.0-4.8) k/uL Monocytes # (Manual) 0.29 (0-1.0) k/uL Eosinophils # (Manual) 0.08 (0-0.7) k/uL Metamyelocytes # (Man) 0.12 H (0) k/uL Nucleated RBCs 0 (0-0) /100 WBC Polychromasia Present Anisocytosis Slight Macrocytosis Moderate Sodium 139 (137-145) mmol/L Potassium 4.3 (3.5-5.1) mmol/L Chloride 107 (98-107) mmol/L Carbon Dioxide 20 L (22-30) mmol/L Anion Gap 12 mmol/L BUN 10 (7-17) mg/dL Creatinine 0.51 L (0.52-1.04) mg/dL Est GFR (CKD-EPI)AfAm >90 (>60 ml/min/1.73 sqM) Est GFR (CKD-EPI)NonAf >90 (>60 ml/min/1.73 sqM) Glucose 125 H (74-99) mg/dL Calcium 9.2 (8.4-10.2) mg/dL Total Bilirubin 0.8 (0.2-1.3) mg/dL AST 66 H (14-36) U/L ALT 38 (9-52) U/L Alkaline Phosphatase 181 H (38-126) U/L Total Protein 6.5 (6.3-8.2) g/dL Albumin 3.6 (3.5-5.0) g/dL Urine Color Yellow Urine Appearance Cloudy H (Clear) Urine pH 6.0 (5.0-8.0) Ur Specific [place] 1.031 (1.001-1.035) Urine Protein 2+ H (Negative) Urine Glucose (UA) Trace H (Negative) Urine Ketones Trace H (Negative) Urine Blood Moderate H (Negative) Urine Nitrite Negative (Negative) Urine Bilirubin Negative (Negative) Urine Urobilinogen 3.0 (<2.0) mg/dL Ur Leukocyte Esterase Trace H (Negative) Urine RBC 126 H (0-5) /hpf Urine WBC 14 H (0-5) /hpf Calcium Oxalate Crystal Occasional H (None) /hpf Hyaline Casts 12 H (0-2) /lpf Urine Mucus Many H (None) /hpf - Radiology Data Radiology results: image reviewed (KUB shows gallstone and distal right kidney stone. Computed tomography scan of the abdomen pelvis shows a 7 mm distal right ureteral calculi. Right lower quadrant diverting ileostomy. Gallstone. Other findings that appears stable.) Disposition Clinical Impression: Ureterolithiasis Disposition: HOME SELF-CARE Condition: Stable Instructions: Kidney Stones (ED) Additional Instructions: Please follow-up with your primary care physician and surgeon and oncologist this week. Please also follow-up with urology this week, number provided. Return for fevers, uncontrolled pain, persistent vomiting, worsening symptoms or other concerns. Prescriptions: Cephalexin [Keflex] 500 mg PO TID #21 cap Ketorolac [Toradol] 10 mg PO Q6HR PRN #12 tab PRN Reason: Pain Tamsulosin [Flomax] 0.4 mg PO DAILY #14 cap Is patient prescribed a controlled substance at d/c from ED?: No Referrals: Katie Maurice MD [Primary Care Provider] - 1-2 days Richmond Krishnan MD [STAFF PHYSICIAN] - 1-2 days Time of Disposition: 09:03
[2018-01-27 08:00] LABS: Band Neutrophils % 6 %; Eosinophils # (M) 0.08 k/uL (0-0.7); Lymphocytes # (M) 0.82 k/uL (1.0-4.8); Metamyelocytes # (M) 0.12 k/uL (0); Metamyelocytes % 3 %; Monocytes # (M) 0.29 k/uL (0-1.0); Neutrophils % (M) 63 %; Nucleated Red Blood Cells 0 /100 WBC (0-0); Polychromasia Present; Total Cells Counted 200
--- NOTE | 2018-01-27 08:38 | XR ---
EXAMINATION TYPE: XR KUB DATE OF EXAM: 01/27/2018 CLINICAL DATA: 62-year-old female with pain, [facility] COMPARISON: None FINDINGS: Lung bases are clear. 2.8 cm gallstone right upper quadrant. No evidence for free intraperitoneal air. No dilated small bowel or air-fluid levels. Scattered or colonic air is present. No significant stool burden. Staple lines in the low midline pelvis from prior colon surgery. Pelvic phlebolith. 6 mm calcification lower right pelvis suggest distal ureteral calculus. IMPRESSION: 1. 6 mm distal right ureteral calculus. 2.No evidence of bowel obstruction or free intraperitoneal air. 3. 2.8 cm gallstone.
[2018-01-27 08:50] VITALS: BP 122/75; PULSE 95; RESP 18; TEMP 97.5
--- NOTE | 2018-01-27 08:50 | CT ---
EXAMINATION TYPE: CT abdomen pelvis wo con DATE OF EXAM: 01/27/2018 COMPARISON: 12/07/2017 HISTORY: 62-year-old female Rt flank pain and dysuria CT DLP: 365.2 mGycm. Automated exposure control for dose reduction was used. TECHNIQUE: Contiguous axial scanning of the abdomen and pelvis without IV contrast. Coronal and sagit chika reconstructions performed. FINDINGS: Heart normal size without pericardial effusion. Lung bases clear without pleural effusion. Noncontrast appearance of the liver, adrenal glands, left kidney, spleen, and pancreas shows no gross abnormality. 2.6 cm gallstone. No abnormal gallbladder distention. There is moderate right-sided hydronephrosis and hydroureter with a 7 mm calculus at the distal right ureter. Multiple pelvic phleboliths are noted. No dilated small bowel, free fluid, or free air. Redemonstrated right lower quadrant diverting ileostomy. Residual mild stool in the right-sided colon . Scattered left-sided colonic diverticulosis with prior resection at the level of the rectum. Postsu rgical soft tissue thickening in the lower pelvis and presacral region with residual 4.9 x 1.0 cm pre sacral fluid collection versus 4.7 x 1.3 cm, previously, not significantly changed. No mesenteric or retroperitoneal lymphadenopathy. Suggestion of some mild perivesicular fat stranding. Uterus is visualized. Ovaries not clearly deline ated from adjacent bowel loops. No pelvic lymphadenopathy clearly identified. Bones: Bilateral L5 pars defects with grade 1/grade 2 anterolisthesis at L5-S1. No osseous destructiv e process. IMPRESSION: 1. A 7 mm distal right ureteral calculus causing moderate obstructive uropathy. 2. Right lower quadrant diverting ileostomy and postsurgical changes of distal rectal resection. Carlo e tissue thickening and stranding in the pelvis is redemonstrated likely combination of postsurgical and posttreatment change. 3. Mild fat stranding around the bladder could be secondary to infection or posttreatment change. 4. A 4.9 x 1.0 cm presacral fluid collection is relatively unchanged from 12/07/2017. 5. Left-sided colonic diverticulosis, 2.6 cm gallstone, and bilateral L5 pars defects with grade 1/g rade 2 anterolisthesis at L5-S1.
== END 2018-01-27 09:14 | disposition home or self-care (01) ==
LOC: EC 05:57
DX: N20.1 Calculus of ureter (principal); Z85.048 Personal history of other malignant neoplasm of rectum, rectosigmoid junction, and anus
CPT/HCPCS: 51798; 36415; 80053; 85025; 81001; 87086; 74018; 74176; 99284; 96374; 96375; J1885; J2270

== ENCOUNTER → 2018-03-18 | Outpatient (CLI) | payer OTHER ==
[2018-03-18 09:01] LABS: Blood Urea Nitrogen 9 mg/dL (7-17)
--- NOTE | 2018-03-18 09:51 | CT ---
EXAMINATION TYPE: CT ChestAbdPelvis w con DATE OF EXAM: 03/18/2018 COMPARISON: 01/27/2018 HISTORY: Rectal Cancer CT DLP: 860.50 mGycm CONTRAST: CT scan of the chest, abdomen and pelvis is performed with Oral Contrast and with IV Contrast, patien t injected with 100 ml mL of Isovue 300. CT Chest: LUNGS: The lungs are clear and free of infiltrate or atelectasis. No pulmonary nodule or mass is det ected. No pleural effusion or CT evidence of interstitial lung disease. MEDIASTINUM: Thoracic aorta is of normal caliber. The heart is not enlarged. No evidence for media stinal mass or adenopathy. HILAR STRUCTURES: No evidence for mass. No hilar adenopathy is appreciated. OTHER: No significant abnormality. CONTRAST CT ABDOMEN AND PELVIS FINDINGS: LIVER/GB: Mild fatty hepatic infiltration. Cholelithiasis without wall thickening. No space occupying hepatic lesion. Biliary tree is of normal caliber. PANCREAS: No inflammation. No distinct mass. SPLEEN: No splenic enlargement. No lesion seen. ADRENALS: No nodule. No thickening. KIDNEYS/BLADDER: No hydronephrosis. No nephrolithiasis. Previously noted right-sided obstructing ca lculus has resolved. No distinct renal mass. Mild urinary bladder wall thickening. BOWEL: Interval reversal of divergent ileostomy. Postsurgical and posttreatment changes about the rec rosmery. Presacral space thickening is unchanged. No evidence for a drainable collection. Moderate fecal stasis. Normal appendix. Normal bowel caliber. No inflammation. GENITAL ORGANS: No gross abnormality. LYMPH NODES: No greater than 1cm abdominal or pelvic lymph nodes are appreciated. AORTA: No significant abnormality. OSSEOUS STRUCTURES: No significant abnormality is seen. OTHER: No significant additional abnormality is seen. IMPRESSION: 1. Interval reversal of divergent ileostomy. Postsurgical and posttreatment changes about the rectum. Presacral space thickening is unchanged. 2. Mild urinary bladder wall thickening may reflect a mild cystitis. 3. Passage of previously noted obstructing calculus on the right. 4. Mild fatty hepatic infiltration.
== END | disposition home or self-care (01) ==
LOC: RADCTMAIN 08:06
PROVIDERS: ATTEND Internal Medicine Hematology & Oncology
DX: N32.89 Other specified disorders of bladder (principal); K76.0 Fatty (change of) liver, not elsewhere classified; C20 Malignant neoplasm of rectum; Z93.2 Ileostomy status; Z98.890 Other specified postprocedural states
CPT/HCPCS: 82565; 84520; 71260; 74177; 36415; Q9967

== ENCOUNTER → 2018-08-05 | Outpatient (CLI) | payer OTHER ==
--- NOTE | 2018-08-05 13:35 | CT ---
EXAMINATION TYPE: CT abdomen pelvis w con DATE OF EXAM: 08/05/2018 COMPARISON: 03/18/2018 INDICATION: Right lower quadrant mass, possible hernia, near ileostomy scar. History of rectal cancer . DLP: 669 mGycm, Automated exposure control for dose reduction was used. CONTRAST: 100 mL of Isovue M300. Study performed with Oral Contrast TECHNIQUE: Axial images were obtained from above the diaphragm to the pubic rami in the axial plane a t 5 mm thick sections. Reconstructed images are reviewed on the computer in the coronal plane. FINDINGS: Limited CT sections are obtained the lung bases. The lung bases are clear. CT ABDOMEN: Liver: Normal Spleen: Normal Pancreas: Normal Adrenal glands: The adrenal glands are normal. Gallbladder: Gallstone is present. Kidneys: No masses are evident. No hydronephrosis is present. No cysts are present. Delayed images were obtained through the kidneys, which remain unremarkable. Aorta: Normal Inferior vena cava: Normal. CT PELVIS: There is an anterior right lower quadrant hernia containing loops of bowel with contrast. No obstruction is evident. However, the caliber of the visualized lumen is narrowed. Series 3 image 6 1. Remaining Loops of bowel within the abdomen and pelvis are normal. There are loops of bowel which are incompletely distended or lack oral contrast limiting their evaluation. Appendix: Normal as visualized. Urinary bladder: Normal. Genitourinary structures: Uterus is normal. Adnexal regions are clear. Osseous structures: No suspicious lytic or sclerotic lesions. IMPRESSIONS: 1. Right lower quadrant anterior abdominal wall hernia containing loops of small bowel. This appears nonobstructed at this time without dilatation
== END ==
LOC: RADCTMAIN 10:35
PROVIDERS: ATTEND Internal Medicine Hematology & Oncology
DX: K43.9 Ventral hernia without obstruction or gangrene (principal)
CPT/HCPCS: 74177; Q9967

== ENCOUNTER → 2019-09-01 | Outpatient (CLI) | payer OTHER ==
--- NOTE | 2019-09-01 12:11 | CT ---
EXAMINATION TYPE: CT ChestAbdPelvis w con DATE OF EXAM: 09/01/2019 COMPARISON: CT August 05, 2018 and older CTs. HISTORY: Rectal CA CT DLP: 1588 mGycm. Automated Exposure Control for Dose Reduction was Utilized. CONTRAST: CT scan of the thorax, abdomen and pelvis is performed with oral and with IV Contrast, patient inject ed with 100 mL of Isovue 300. FINDINGS: LUNGS: The lungs are grossly clear, there is no concerning parenchymal mass or nodule identified. T here is no pleural effusion or pneumothorax seen. The tracheobronchial tree is patent. MEDIASTINUM: There are no greater than 1 cm hilar or mediastinal lymph nodes. No pericardial effusi on is seen. OTHER: Partial visualization of right internal jugular Mediport catheter on current study terminating in SVC. LIVER/GB: Large calcified gallstone in gallbladder.. PANCREAS: No significant abnormality is seen. SPLEEN: No significant abnormality is seen. ADRENALS: No significant abnormality is seen. KIDNEYS: Mildly distended bladder. BOWEL: Surgical sutures at level of rectum maximum for redemonstrated. Contrast extends to this level. No suspicious small and large bowel dilatation. Some distal colonic d iverticula prominent in the sigmoid colon. Poor distention level of sutures noted persistent moderate to severe wall thickening. Presacral fat is lost axial image 102 with soft tissue measuring 2.2 cm A P diameter again seen. GENITAL ORGANS: Anteverted uterus. LYMPH NODES: No greater than 1cm abdominal or pelvic lymph nodes are appreciated. OSSEOUS STRUCTURES: Slight S-shaped scoliosis. Bilateral pars defect L5 level with grade 1 anterolist hesis L5 on S1 and moderate to advanced disc space narrowing. Mild to moderate disc space narrowing w ith endplate sclerosis and spurring anterior T12-L1 level OTHER: No significant additional abnormality is seen. IMPRESSION: Persistent poor distention with wall thickening at site of rectal surgery with abnormal p resacral soft tissue is nonspecific and could reflect surgical and/or treatment change. Cannot exclud e recurrent local neoplasm. No suspicious mass or adenopathy is identified to suggest new metastatic disease.
== END | disposition home or self-care (01) ==
LOC: RADCTMAIN 09:04
PROVIDERS: ATTEND Internal Medicine Hematology & Oncology
DX: Z03.89 Encounter for observation for other suspected diseases and conditions ruled out (principal); K63.89 Other specified diseases of intestine; C20 Malignant neoplasm of rectum
CPT/HCPCS: 71260; 74177; Q9967 ×2

== ENCOUNTER → 2020-04-21 | Day surgery (SDC) | payer OTHER ==
[2020-04-20 09:15] VITALS: BMI 26.5
[~2020-04-21] MED LIST changes: +LACTATED RINGERS 1,000 ML IV SCH; +ONDANSETRON 4 MG/2 ML VIAL IVP PRN; -PEGFILGRASTIM 6 MG/0.6 ML SYRINGE SQ ONE; +PROPOFOL 10 MG/ML 20 ML VIAL IV ONE
[2020-04-21 09:29] VITALS: RESP 16; TEMP 97
--- NOTE | 2020-04-21 10:38 | P.PCN ---
Date of Procedure: 04/21/20 Procedure(s) Performed: BRIEF HISTORY: Patient is a 65-year-old pleasant white female scheduled for an elective colonoscopy as a part of surveillance of was a history of rectal cancer diagnosed in March 2070. She status post chemoradiation followed by surgery. Her last colonoscopy was 2 years ago. PROCEDURE PERFORMED: Colonoscopy. PREOPERATIVE DIAGNOSIS: History of rectal cancer diagnosed in 2016. IV sedation per Anesthesia. PROCEDURE: After informed consent was obtained, the patient, was brought into the endoscopy unit. IV sedation was administered by Anesthesia under continuous monitoring. Digital rectal examination was normal. Initially the Olympus CF-160 flexible video colonoscope was then inserted in the rectum, gradually advanced into the cecum without any difficulty. Careful examination was performed as the scope was gradually being withdrawn. Ileocecal valve and the appendiceal orifice were visualized and appeared normal. Prep was excellent. Mucosa of the cecum, ascending colon, transverse colon, descending colon, sigmoid colon, appeared normal. There is mild patient is noted in the anal area. Scattered sigmoidal mucosa seen. Retroflexion was performed in the rectum and no lesions were seen. The patient tolerated the procedure well. IMPRESSION: Normal-appearing colon from rectum to cecum with no evidence of colorectal. Scattered sigmoid diverticulosis Mild radiation changes in the anal area. RECOMMENDATIONS: Findings of this examination were discussed with the patient well as her family. She was advised to have a repeat surveillance colonoscopy in 2 years..
[2020-04-21 10:53] VITALS: BP 117/74; PULSE 84
== END ==
LOC: ORWHC2ENDO 08:59
PROVIDERS: ATTEND Internal Medicine Gastroenterology
DX: Z12.11 Encounter for screening for malignant neoplasm of colon (principal); K57.30 Diverticulosis of large intestine without perforation or abscess without bleeding; K62.89 Other specified diseases of anus and rectum; Z85.048 Personal history of other malignant neoplasm of rectum, rectosigmoid junction, and anus; Z92.21 Personal history of antineoplastic chemotherapy; Z92.3 Personal history of irradiation; Z79.899 Other long term (current) drug therapy; Z90.49 Acquired absence of other specified parts of digestive tract; Z98.890 Other specified postprocedural states; Z86.2 Personal history of diseases of the blood and blood-forming organs and certain disorders involving the immune mechanism
CPT/HCPCS: 45378; J2704

== ENCOUNTER → 2020-09-20 | Outpatient (CLI) | payer OTHER ==
[2020-09-20 10:31] LABS: African American GFR (CKD) >90 (>60 ml/min/1.73 sqM); Blood Urea Nitrogen 15 mg/dL (7-17); Non-African American GFR(CKD) >90 (>60 ml/min/1.73 sqM)
--- NOTE | 2020-09-21 11:18 | CT ---
EXAMINATION TYPE: CT ChestAbdPelvis w con DATE OF EXAM: 09/20/2020 INDICATION: Carcinoma of rectum COMPARISON: 09/01/2019 CT DLP: 1728 mGycm CONTRAST: Performed with Oral Contrast and with IV Contrast, patient injected with 100 ml mL of Isovue 300. TECHNIQUE: Axial images at 5 mm thick sections. Reconstructed images in the coronal plane. Delayed images through the kidneys. FINDINGS: CT CHEST: Portion of the thyroid visualized is normal. No suspicious lung nodules or focal infiltrates are present. No enlarged mediastinal or hilar adenopathy is evident. The ascending aorta diameter at the level of the main pulmonary artery is 3.2 cm. The main pulmonary artery diameter at the bifurcation is 3.[address] ABDOMEN: Liver: Normal Spleen: Normal Pancreas: Normal Adrenal glands: The adrenal glands are normal. Gallbladder: Cholelithiasis Kidneys: No masses are evident. No hydronephrosis is present. No cysts are present. Delayed images were obtained through the kidneys, which remain unremarkable. Aorta: Normal Inferior vena cava: Normal. CT PELVIS: Loops of bowel within the abdomen and pelvis are normal. There are loops of bowel which are incom pletely distended or lack oral contrast limiting their evaluation. There is an anastomosis of the rectosigmoid junction. The prevertebral space is thickened with a slig htly hypodense center area measuring 2.9 x 1.5 cm in size. This is smaller than the comparison. Appendix: Normal as visualized. Urinary bladder: Normal. Genitourinary structures: Uterus appears normal. Adnexal regions are clear. Osseous structures: No suspicious lytic or sclerotic lesions. Spondylolysis of L5 is present. IMPRESSIONS: 1. Slight diminished size of the presacral soft tissue. 2. Suspicious changes to suggest recurrent or metastatic rectal cancer is not identified
== END | disposition home or self-care (01) ==
LOC: RADCTMAIN 09:41
PROVIDERS: ATTEND Internal Medicine Hematology & Oncology
DX: C20 Malignant neoplasm of rectum (principal); M79.89 Other specified soft tissue disorders
CPT/HCPCS: 82565; 84520; 71260; 74177; 36415; Q9967

== ENCOUNTER → 2021-10-07 | Outpatient (CLI) | payer OTHER ==
--- NOTE | 2021-10-07 10:38 | CT ---
EXAMINATION TYPE: CT ChestAbdPelvis w con DATE OF EXAM: 10/07/2021 COMPARISON: CT dated 09/20/2020 HISTORY: carcinoma of rectum CT DLP: 1101.7 mGycm Automated exposure control for dose reduction was used. CONTRAST: CT scan of the chest, abdomen and pelvis is performed with Oral Contrast and with IV Contrast, patien t injected with 100 mL of Isovue 300. FINDINGS: LUNGS: The lungs are grossly clear, there is no concerning parenchymal mass or nodule identified. T here is no pleural effusion or pneumothorax seen. The tracheobronchial tree is patent. MEDIASTINUM: There are no greater than 1 cm hilar or mediastinal lymph nodes. Dilated pulmonary trunk measuring 3.3 cm which may suggest pulmonary hypertension. No pericardial effusion is seen. OTHER: A right-sided Port-A-Cath with the tip is seen within the superior aspect of the SVC. Enlarge d thyroid gland, please correlate with thyroid function tests/thyroid ultrasound results. Degenerativ e changes of the lower cervical spine. No aggressive bone lesion. LIVER/GB: Large gallbladder stone measuring 2.9 cm. Contracted gallbladder. Nodular outline of the li gael with heterogeneous texture suggestive of hepatic cirrhosis. Recanalization of the paraumbilical v ein. No definite hepatic focal lesion identified. PANCREAS: No significant abnormality is seen. SPLEEN: Enlarged without definite lesion suggesting portal hypertension. ADRENALS: No significant abnormality is seen. KIDNEYS: No significant abnormality is seen. BOWEL: Slightly thickened bowel wall, nonspecific. No evidence of bowel obstruction. Unremarkable co lonic anastomosis in the presacral location yet with persistent presacral soft tissue thickening and chronic collection measuring 28 x 57 mm, grossly stable. Residual disease at that location cannot be excluded. Further PET scan assessment can be considered. Severe fecal loading of the colon suggestive of constipation with scattered uncomplicated colonic diverticulosis. It is not possible to exclude s mall colonic lesion. Normal appendix. REPRODUCTIVE ORGANS: The uterus is deviated to the right side. No gross adnexal mass. LYMPH NODES: No suspicious or progressive lymphadenopathy. OSSEOUS STRUCTURES: Bilateral L5 pars break with grade 1 anterolisthesis of L5 over S1 and severe deg enerative changes at L5-S1 level. Degenerative changes are also seen at T12-L1 level. Reduced density of the sacrum, probably related to previous radiation. OTHER: Fat stranding is seen in the retroperitoneum posterior to the pancreas, nonspecific. No sizabl e ascites. IMPRESSION: 1. Stable postsurgical changes and soft tissue thickening in the presacral location with no evidence of progression. Residual/recurrent disease at that location cannot be excluded. Further PET scan asse ssment can be considered. 2. No evidence of metastatic disease seen in the chest, abdomen or the pelvis otherwise. 3. Suspected hepatic cirrhosis and splenomegaly, please correlate for portal hypertension. Other inci dental findings as described above.
== END | disposition home or self-care (01) ==
LOC: RADCTMAIN 07:46 → EEVIPCON 09:20
PROVIDERS: ATTEND Internal Medicine Hematology & Oncology
DX: C20 Malignant neoplasm of rectum (principal); R16.1 Splenomegaly, not elsewhere classified
CPT/HCPCS: 71260; 74177; Q9967

== ENCOUNTER → 2021-11-24 | Outpatient (CLI) | payer OTHER ==
[2021-11-24 18:30] LABS: Protein, Total 6.9 g/dL (6.2-8.2)
[2021-11-24 18:53] LABS: % Iron Saturation 31.39 (12.00-45.00); Hepatitis B Surface Antigen Nonreactive (Nonreactive); Hepatitis C IgG Antibody Nonreactive (Nonreactive)
[2021-11-24 21:25] LABS: Ceruloplasmin 24.5 mg/dL (20.0-60.0)
[2021-11-26 10:37] LABS: Gamma Globulin 1.21 g/dL (0.70-1.50)
== END | disposition home or self-care (01) ==
LOC: LABWHC1 10:42
PROVIDERS: ATTEND Internal Medicine Gastroenterology
DX: K74.60 Unspecified cirrhosis of liver (principal); R74.01 Elevation of levels of liver transaminase levels; K76.0 Fatty (change of) liver, not elsewhere classified
CPT/HCPCS: 36415; 82103; 82105; 82390; 82728; 83516; 83540; 83550; 84165; 86038; 86803; 87340

== ENCOUNTER 2021-12-09 08:50 | Day surgery (SDC) | payer OTHER ==
[~2021-12-09 08:50] MED LIST changes: -ONDANSETRON 4 MG/2 ML VIAL IVP PRN; -PROPOFOL 10 MG/ML 20 ML VIAL IV ONE
[2021-12-09 09:04] VITALS: TEMP 96.5
[2021-12-09] MEDS ORDERED: PROPOFOL 10 MG/ML 20 ML VIAL IV ONE (10:12)
[2021-12-09] MEDS ORDERED: LIDOCAINE 2% INJ 20 MG/ML (2 ML VIAL) ONE (10:12)
--- NOTE | 2021-12-09 10:32 | P.PCN ---
Date of Procedure: 12/09/21 Procedure(s) Performed: BRIEF HISTORY: Patient is a 66 -year-old pleasant white female scheduled for an elective colonoscopy as a part of surveillance of colorectal neoplasia. She was diagnosed with rectal cancer in March 2017 following which she underwent neoadjuvant radiation chemotherapy followed by surgery. Last colonoscopy was 2 years ago. PROCEDURE PERFORMED: Colonoscopy. PREOPERATIVE DIAGNOSIS: Surveillance of rectal cancer diagnosed in March 2017. IV sedation per Anesthesia. PROCEDURE: After informed consent was obtained, the patient, was brought into the endoscopy unit. IV sedation was administered by Anesthesia under continuous monitoring. Digital rectal examination was normal. Initially the Olympus CF-160 flexible video colonoscope was then inserted in the rectum, gradually advanced into the cecum without any difficulty. Careful examination was performed as the scope was gradually being withdrawn. Ileocecal valve and the appendiceal orifice were visualized and appeared normal. Prep was excellent. Mucosa of the cecum, ascending colon, transverse colon, descending colon, sigmoid colon, and proximal rectum appeared normal. Scattered telangiectasia noted in the area just above the dentate line consistent with mild radiation proctitis. Scattered sigmoid diverticulosis seen. The patient tolerated the procedure well. IMPRESSION: Normal-appearing colon from rectum to cecum with no evidence of colorectal neoplasia. Scattered sigmoid diverticulosis Mild radiation proctitis involving the distal rectum and anus. RECOMMENDATIONS: Findings of this examination were discussed with the patient as a family. She was advised to have a repeat surveillance colonoscopy in 2 years..
[2021-12-09 10:42] VITALS: RESP 16
[2021-12-09 10:52] VITALS: BP 113/65; PULSE 81
== END 2021-12-09 11:03 | disposition home or self-care (01) ==
LOC: ORWHC2ENDO 08:50
PROVIDERS: ATTEND Internal Medicine Gastroenterology
DX: K57.30 Diverticulosis of large intestine without perforation or abscess without bleeding (principal); K62.7 Radiation proctitis; Y84.2 Radiological procedure and radiotherapy as the cause of abnormal reaction of the patient, or of later complication, without mention of misadventure at the time of the procedure; Z85.048 Personal history of other malignant neoplasm of rectum, rectosigmoid junction, and anus; Z79.899 Other long term (current) drug therapy
CPT/HCPCS: 45378; J2704; J2001

== ENCOUNTER → 2024-05-23 | Outpatient (CLI) | payer MEDICARE ==
--- NOTE | 2024-05-23 12:31 | US ---
EXAMINATION TYPE: US liver DATE OF EXAM: 05/23/2024 COMPARISON: Multiple CT, Most recent 10/17/2022 CLINICAL INDICATION: Female, 69 years old with history of K74.60 CIRRHOSIS OF LIVER; Abdominal disten tion x 1 month; Constipation; Hx Fatty Liver TECHNIQUE: Grayscale and color Doppler imaging of the right upper quadrant was performed. FINDINGS: EXAM MEASUREMENTS: Liver Length: 12.5 cm Gallbladder Wall: 0.3 cm CBD: 0.4 cm Right Kidney: 10.8 x 4.9 x 6.5 cm [employer] NOTES: Pancreas: wnl Liver: Increased attenuation; Nodular and heterogenous Gallbladder: Echogenic foci with posterior shadowing, ?Contracted - patient is properly NPO Evidence for sonographic Valderrama's sign: No CBD: wnl Right Kidney: wnl IMPRESSION: 1. Hepatic cirrhosis without definitive focal lesion identified. 2. Cholelithiasis without evidence for acute cholecystitis. 3. Ascites. [facility], , 05/23/2024 12:28 PM
[2024-05-23 15:27] LABS: Basophils # (A) 0.04 X 10*3/uL (0.00-0.10); Basophils % (A) 0.8 %; Eosinophils # (A) 0.32 X 10*3/uL (0.04-0.35); Eosinophils % (A) 6.4 %; HCT 36.8 % (37.2-46.3); HGB 11.7 g/dL (12.0-15.0); Lymphocytes # (A) 1.29 X 10*3/uL (0.90-5.00); Lymphocytes % (A) 25.7 %; MCH 31.7 pg (27.0-32.0); MCHC 31.8 g/dL (32.0-37.0); MCV 99.7 FL (80.0-97.0); Mean Platelet Volume 10.7 FL (9.5-12.2); Monocytes # (A) 0.71 X 10*3/uL (0.20-1.00); Monocytes % (A) 14.2 %; NRBC Per 100 WBC 0 X 10*3/uL (0.00-0.01); Neutrophils # (A) 2.64 X 10*3/uL (1.80-7.70); Neutrophils % (A) 52.7 %; Platelet Count 136 X 10*3/uL (140-440); RBC 3.69 X 10*6/uL (4.10-5.20); RDW 15.4 % (11.5-14.5); WBC 5.01 X 10*3/uL (4.50-10.00)
[2024-05-23 15:52] LABS: ALT 33 U/L (8-44); AST 69 U/L (13-35); Albumin 3.2 g/dL (3.8-4.9); Albumin/Globulin Ratio 1.07 Ratio (1.60-3.17); Alkaline Phosphatase 79 U/L (41-126); Calcium 9.2 mg/dL (8.7-10.3); Carbon Dioxide 26.8 mmol/L (21.6-31.8); Chloride 104 mmol/L (96-109); Glucose 88 mg/dL (70-110); Potassium 3.8 mmol/L (3.5-5.5); Sodium 141 mmol/L (135-145); Total Bilirubin 2.3 mg/dL (0.3-1.2); Total Protein 6.2 g/dL (6.2-8.2)
== END | disposition home or self-care (01) ==
LOC: RADUSWWP 08:04
PROVIDERS: ATTEND Internal Medicine Gastroenterology
CPT/HCPCS: 76705; 80053; 82105; 85025

== ENCOUNTER 2024-11-26 08:51 | Day surgery (SDC) | payer MEDICARE ==
[2024-11-24 16:04] VITALS: BMI 21.4
[~2024-11-26 08:51] MED LIST changes: -LACTATED RINGERS 1,000 ML IV SCH; +LIDOCAINE 1% (10MG/ML) FOR IV START INTRADERMA PRN
[2024-11-26] MEDS: LACTATED RINGERS 1,000 ML IV SCH (09:30)
[2024-11-26] MEDS: IV FLUID CONTINUATION 1,000 ML IV ONE (09:30)
[2024-11-26] MEDS ORDERED: LIDOCAINE 2% (PF) 20 MG/ML 5 ML VIAL ONE (09:35)
[2024-11-26] MEDS ORDERED: PROPOFOL 10 MG/ML 20 ML VIAL IV ONE (09:35)
[2024-11-26 09:38] VITALS: TEMP 98.1
--- NOTE | 2024-11-26 10:07 | P.PCN ---
Date of Procedure: 11/26/24 Implants: Brief history: Patient is a pleasant 69-year-old white female scheduled for an elective upper endoscopy as well as colonoscopy as a part of evaluation of liver cirrhosis/screening for esophageal varices and screening for colon cancer. She was diagnosed with rectal cancer in March 2017. Her last colonoscopy was in December 2021 that was unremarkable. Procedure performed: Esophagogastroduodenoscopy with biopsy Colonoscopy with argon plasma coagulation Preoperative diagnosis: History of liver cirrhosis screening for esophageal varices Screening for colon cancer and personal history of rectal cancer diagnosed in 2017 status post neoadjuvant chemoradiation followed by surgery Anesthesia: MAC Procedure: After informed consent was obtained from the patient was brought into the endoscopy unit and IV sedation was administered by anesthesia under continuous monitoring. Initially upper endoscopy was done. The Olympus GF 160 video endoscope was inserted inserted into the mouth and esophagus intubated without any difficulty and was gradually advanced into the stomach and duodenum and care fully examined. The bulb and second part of the duodenum had severe duodenitis. The scope was then withdrawn into the stomach adequately insufflated with air and upon careful examination the antrum had severe gastritis and biopsies were done from this area. Because of the body, cardia and fundus appeared normal. No gastric varices identified. The scope was then withdrawn into the esophagus. The GE junction was located at 40 cm to the incisors. It appeared regular with no erythema erosions or ulcerations. There were small to medium size distal esophageal varices identified but no red angelina gaston seen. Rest of the esophagus appeared normal. Patient tolerated the procedure well. At this time the patient continued to remain sedation. Initial digital rectal examination was normal. Olympus CF 160 video colonoscope was then inserted into the rectum and gradually advanced to the cecum without any difficulty. Careful examination was performed as the scope was gradually being withdrawn. The prep was excellent. The cecum, ascending colon, transverse colon, descending colon, sigmoid colon appeared normal. There is scattered sigmoid diverticulosis seen. In the distal rectum just proximal to the dentate line reveals severe telangiectasias identified consistent with radiation proctitis with active oozing and other plasma coagulation was performed with good hemostasis. Retro flexion was performed in the rectum and no lesions were noted. Patient tolerated the procedure well. Impression: 1. Upper endoscopy revealed small to medium sized distal esophageal varices, severe antral gastritis and duodenitis 2. Colonoscopy revealed scattered sigmoid diverticulosis and severe radiation proctitis involving the distal rectum with multiple telangiectasias with active oozing status post argon plasma coagulation. Recommendations: Findings of this examination were discussed with the patient as well as her family. She was advised to follow with the biopsy results. She will be started on Inderal 10 mg 3 times daily for primary prevention of esophageal variceal bleeding. Follow-up in the office in 2 to 3 months. Plan repeat upper endoscopy in 1 to 2 years. Recommended repeat colonoscopy in 3 years.
[2024-11-26 10:35] VITALS: BP 120/76; PULSE 84; RESP 18
[2024-11-26] MEDS: ONDANSETRON 4 MG/2 ML VIAL IVP STA (10:57)
== END 2024-11-26 11:19 | disposition home or self-care (01) ==
LOC: ORWHC2ENDO 08:51
PROVIDERS: ATTEND Internal Medicine Gastroenterology
DX: Z12.11 Encounter for screening for malignant neoplasm of colon (principal); K62.7 Radiation proctitis; K57.30 Diverticulosis of large intestine without perforation or abscess without bleeding; K29.80 Duodenitis without bleeding; K29.50 Unspecified chronic gastritis without bleeding; K74.60 Unspecified cirrhosis of liver; I85.10 Secondary esophageal varices without bleeding; G62.9 Polyneuropathy, unspecified; Z79.83 Long term (current) use of bisphosphonates; Z79.899 Other long term (current) drug therapy; Z85.048 Personal history of other malignant neoplasm of rectum, rectosigmoid junction, and anus; Z92.3 Personal history of irradiation; Z92.21 Personal history of antineoplastic chemotherapy; Z90.49 Acquired absence of other specified parts of digestive tract
CPT/HCPCS: 45388; 43239; 88305; J2405; J2704; J2003

== ENCOUNTER → 2025-01-29 | Outpatient (CLI) | payer MEDICARE ==
--- NOTE | 2025-01-29 09:48 | US ---
EXAMINATION TYPE: US liver DATE OF EXAM: 01/29/2025 COMPARISON: US 2023 CLINICAL INDICATION: Female, 69 years old with history of K74.60 UNSPECIFIED CIRRHOSIS OF LIVER; TECHNIQUE: Grayscale and color Doppler imaging of the right upper quadrant was performed. FINDINGS: EXAM MEASUREMENTS: Liver Length: 15.3 cm Gallbladder Wall: 0.2 cm CBD: 0.5 cm Right Kidney: 10.6 x 4.4 x 5.7 cm Pancreas: visualized portions wnl, limited by overlying midline bowel gas Liver: increased attenuation, nodular contour, heterogeneous correlate for cirrhosis Gallbladder: cholelithiasis Evidence for sonographic Valderrama's sign: no CBD: wnl Right Kidney: wnl Abdominal ascites IMPRESSION: 1. Clinical correlation for cirrhosis of liver. Ascites is present. 2. Cholelithiasis [facility], , 01/29/2025 9:46 AM
== END | disposition home or self-care (01) ==
LOC: RADUSWWP 08:50
PROVIDERS: ATTEND Internal Medicine Gastroenterology
DX: K74.60 Unspecified cirrhosis of liver (principal); K80.20 Calculus of gallbladder without cholecystitis without obstruction; R18.8 Other ascites
CPT/HCPCS: 76705